=== PATIENT | male | born 1985 | race Caucasian/White ===

== ENCOUNTER 2017-04-02 19:21 | Emergency (ER) | payer SELFPAY ==
--- NOTE | 2017-04-02 20:09 | ER Document Report ---
ED Medical Screen (RME) - General Chief Complaint: Nausea/Vomiting Stated Complaint: POSSIBLE HERNIA, VOMITING BLOOD Time Seen by Provider: 04/02/17 20:08 Notes: Patient presents with abdominal pain distention and vomiting. He states he mainly was prompted the visit tonight because he had excessive vomiting for the last 3 days with blood in it. He is also had tarry watery stools for approximate 1 month. He also had abdominal pain for several months. He has abdominal distention and bloating for 1-2 months. He states up until several months ago he was a very heavy drinker and drank 1/2 gallon of hard liquor plus a case of beer every day for 10 years. He states he only drinks 1 beer a night now. TRAVEL OUTSIDE OF THE [place] IN LAST 30 DAYS: No - Related Data Allergies/Adverse Reactions: No Known Allergies Allergy (Unverified 04/02/17 19:59) Past Medical History Renal/ Medical History: Denies: Hx Peritoneal Dialysis Physical Exam - Vital signs Vitals: Temp Pulse Resp BP Pulse Ox 98.3 F 94 16 140/88 H 99 04/02/17 19:53 04/02/17 19:53 04/02/17 19:53 04/02/17 19:53 04/02/17 19:53 Course - Vital Signs Vital signs: Temp Pulse Resp BP Pulse Ox 98.3 F 94 16 140/88 H 99 04/02/17 19:53 04/02/17 19:53 04/02/17 19:53 04/02/17 19:53 04/02/17 19:53
[2017-04-02 20:38] LABS: APPEARANCE,URINE SLIGHTLY-CLOUDY; BILIRUBIN,URINE MODERATE (NEGATIVE); GLUCOSE, URINE NEGATIVE (NEGATIVE); KETONES,URINE NEGATIVE (NEGATIVE); LEUKOCYTE ESTERASE,URINE NEGATIVE (NEGATIVE); NITRITE,URINE POSITIVE (NEGATIVE); PROTEIN,URINE >=500 mg/dL (NEGATIVE)
[2017-04-02 20:51] LABS: ALANINE AMINOTRANSFERASE 33 U/L (21-72); ALBUMIN 3.9 g/dL (3.5-5.0); ALCOHOL 12 mg/dL (NONE DETECTED); ALKALINE PHOSPHATASE 122 U/L (38-126); ANION GAP 14 (5-19); ASPARTATE AMINO TRANSFERASE 224 U/L (17-59); BILIRUBIN,DIRECT 1.7 mg/dL (0.0-0.4); BILIRUBIN,TOTAL 4.8 mg/dL (0.2-1.3); BLOOD UREA NITROGEN 4 mg/dL (7-20); CALCIUM 8.9 mg/dL (8.4-10.2); CARBON DIOXIDE 29 mmol/L (22-30); CHLORIDE 99 mmol/L (98-107); CREATININE RESULT 0.58 mg/dL (0.52-1.25); GLUCOSE 107 mg/dL (75-110); POTASSIUM 3.5 mmol/L (3.6-5.0); SODIUM 141.5 mmol/L (137-145); TOTAL PROTEIN 8.4 g/dL (6.3-8.2)
--- NOTE | 2017-04-02 22:18 | ER Document Report ---
ED General - General Chief Complaint: Nausea/Vomiting Stated Complaint: POSSIBLE HERNIA, VOMITING BLOOD Time Seen by Provider: 04/02/17 20:08 Mode of Arrival: Ambulatory Information source: Patient Notes: 31-year-old male presents with complaints of abdominal distention of for 5 month duration. Patient was told that he has ascites was told the fluid could go down on its own. Patient notes that the swelling has not gone down denies any shortness breath difficulty breathing. Denies any fevers or chills. Patient notes he was in extensive alcoholic but now only drinks 1 beer a night TRAVEL OUTSIDE OF THE [place] IN LAST 30 DAYS: No - HPI Onset: Other - 4 month duration Onset/Duration: Persistent, Worse Quality of pain: Achy Severity: Mild Pain Level: 1 Associated symptoms: Other Exacerbated by: Denies Relieved by: Denies Similar symptoms previously: Yes Recently seen / treated by doctor: Yes - Related Data Allergies/Adverse Reactions: No Known Allergies Allergy (Unverified 04/02/17 19:59) Past Medical History - Social History Smoking Status: Never Smoker Cigarette use (# per day): No Chew tobacco use (# tins/day): No Smoking Education Provided: No Frequency of alcohol use: Drinks daily one beer used to be heavy alcoholic Drug Abuse: None Family History: Reviewed & Not Pertinent Renal/ Medical History: Denies: Hx Peritoneal Dialysis Surgical Hx: Negative Review of Systems - Review of Systems Notes: REVIEW OF SYSTEMS: CONSTITUTIONAL : Denies fever, chills, or sweats. Denies recent illness. EENT: Denies eye, ear, throat, or mouth pain or symptoms. Denies nasal or sinus congestion or discharge. Denies throat, tongue, or mouth swelling or difficulty swallowing. CARDIOVASCULAR: Denies chest pain. Denies palpitations or racing or irregular heart beat. Denies ankle edema. RESPIRATORY: Denies cough, cold, or chest congestion. Denies shortness of breath, difficulty breathing, or wheezing. GASTROINTESTINAL: Admits to abdominal pain mild distention protrusion of the umbilicus GENITOURINARY: Denies difficulty urinating, painful urination, burning, frequency, blood in urine, or discharge. MUSCULOSKELETAL: Denies back or neck pain or stiffness. Denies joint pain or swelling. SKIN: Denies rash, lesions or sores. HEMATOLOGIC : Denies easy bruising or bleeding. LYMPHATIC: Denies swollen, enlarged glands. NEUROLOGICAL: Denies confusion or altered mental status. Denies passing out or loss of consciousness. Denies dizziness or lightheadedness. Denies headache. Denies weakness or paralysis or loss of use of either side. Denies problems with gait or speech. Denies sensory loss, numbness, or tingling. Denies seizures. PSYCHIATRIC: Denies anxiety or stress. Denies depression, suicidal ideation, or homicidal ideation. ALL OTHER SYSTEMS REVIEWED AND NEGATIVE. Dictation was performed using [employer] voice recognition software PHYSICAL EXAMINATION: GENERAL: Well-appearing, well-nourished and in no acute distress. HEAD: Atraumatic, normocephalic. EYES: Pupils equal round and reactive to light, extraocular movements intact, sclera anicteric, conjunctiva are normal. ENT: Nares patent, oropharynx clear without exudates. Moist mucous membranes. NECK: Normal range of motion, supple without lymphadenopathy LUNGS: Breath sounds clear to auscultation bilaterally and equal. No wheezes rales or rhonchi. HEART: Regular rate and rhythm without murmurs ABDOMEN: Distended abdomen fluid level noted nontender on palpation no hernia noted but there is protrusion of the umbilicus Musculoskeletal: Normal range of motion, no pitting or edema. No cyanosis. NEUROLOGICAL: Cranial nerves grossly intact. Normal speech, normal gait. Normal sensory, motor exams PSYCH: Normal mood, normal affect. SKIN: Warm, Dry, normal turgor, no rashes or lesions noted. 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 Also, there is no evidence or peritonitis, sepsis, or toxicity. I have reevaluated this patient multiple times and no significant life threatening changes are noted. The patient and I have discussed the diagnosis and risks, and we agree with discharging home with close follow-up with the understanding that symptoms and presentations can change. We also discussed returning to the Emergency Department immediately if new or worsening symptoms occur. We have discussed the symptoms which are most concerning (e.g., bloody stool, fever, changing or worsening pain, intractable vomiting - standard verbal up date) that necessitate immediate return. - Vital Signs Vital signs: Temp Pulse Resp BP Pulse Ox 98.3 F 94 16 128/90 H 96 04/02/17 19:53 04/02/17 19:53 04/02/17 19:53 04/02/17 23:01 04/02/17 23:01 - Laboratory Result Diagrams: 04/02/17 22:33 04/02/17 20:10 Laboratory results interpreted by me: 04/02/17 04/02/17 04/02/17 20:10 20:10 22:33 RBC 3.89 L Hgb 12.3 L Hct 36.8 L RDW 14.4 H PT Potassium 3.5 L BUN 4 L Total Bilirubin 4.8 H Direct Bilirubin 1.7 H AST 224 H Total Protein 8.4 H Urine Protein >=500 H Urine Blood MODERATE H Urine Nitrite POSITIVE H Urine Bilirubin MODERATE H Urine Urobilinogen 4.0 H 04/02/17 22:33 RBC Hgb Hct RDW PT 21.1 H Potassium BUN Total Bilirubin Direct Bilirubin AST Total Protein Urine Protein Urine Blood Urine Nitrite Urine Bilirubin Urine Urobilinogen - Diagnostic Test Radiology reviewed: Image reviewed, Reports reviewed - report given to patient Discharge - Discharge Clinical Impression: Ascites due to alcoholic cirrhosis, Abdominal distension Condition: Stable Disposition: HOME, SELF-CARE Instructions: Liver Function Abnormality ([facility]) Forms: Follow-Up Radiology Testing Referrals: EDGARD BRIGHT MD [ACTIVE STAFF] - Follow up tomorrow
[2017-04-02] MEDS ORDERED: ONDANSETRON HCL INJ/PF 4 MG/2 ML SDV IV ONE (22:19)
[2017-04-02 22:47] LABS: ABSOLUTE LYMPHOCYTES (AUTO) 0.8 10^3/uL (0.5-4.7); ABSOLUTE MONOCYTES (AUTO) 0.4 10^3/uL (0.1-1.4); ABSOLUTE NEUT (AUTO) 3.6 10^3/uL (1.7-8.2); BASOPHILS % (AUTO) 0.7 % (0-2); EOSINOPHILS % (AUTO) 0.9 % (0-6); HEMATOCRIT 36.8 % (37.9-51.0); HEMOGLOBIN 12.3 g/dL (13.5-17.0); HGB HCT DIFFERENCE 0.1; LYMPHOCYTES % (AUTO) 16.1 % (13-45); MEAN CORPUSCULAR HEMOGLOBIN 31.7 pg (27.0-33.4); MEAN CORPUSCULAR HGB CONC 33.5 g/dL (32.0-36.0); MEAN CORPUSCULAR VOLUME 94 fl (80-97); RED BLOOD COUNT 3.89 10^6/uL (4.35-5.55); RED CELL DISTRIBUTION WIDTH 14.4 % (11.5-14.0); SEGMENTED NEUTROPHILS % (AUTO) 73.3 % (42-78)
[2017-04-02 22:59] LABS: PROTHROMBIN TIME 21.1 SEC (11.4-15.4)
--- NOTE | 2017-04-02 23:30 | RADIOLOGY REPORT (SQ) ---
"EXAM DESCRIPTION: CT ABD/PELVIS WITH IV ORAL COMPLETED DATE/TIME: 04/02/2017 10:33 pm REASON FOR STUDY: abd pain/vomiting/bloody diarrhea COMPARISON: July 2011 TECHNIQUE: CT scan of the abdomen and pelvis performed with intravenous and oral contrast using jessica terri scanning technique with dynamic intravenous contrast injection. Images reviewed with lung, soft t issue, and bone windows. Reconstructed coronal and sagittal MPR images reviewed. Delayed images for e valuation of the urinary system also acquired. All images stored on PACS. All CT scanners at this facility use dose modulation, iterative reconstruction, and/or weight based d osing when appropriate to reduce radiation dose to as low as reasonably achievable (ALARA). [facility]: Dose Right [facility]: CareDose [facility]: Dose Right [facility]: Teradose 4D [facility]: ideaTree - innovate | mentor | invest CONTRAST TYPE AND DOSE: contrast/concentration: Isovue 370.00 mg/ml; Total Contrast Delivered: 100.0 ml; Total Saline Delivered: 72.0 ml RENAL FUNCTION: None required. The patient is less than 50 years old. RADIATION DOSE: Up-to-date CT equipment and radiation dose reduction techniques were employed. CTDIv ol: 11.6 mGy. DLP: 1476 mGy-cm. . LIMITATIONS: None. FINDINGS: LOWER CHEST: No significant findings. No nodules or infiltrates. LIVER: There is diffuse heterogeneous density in the liver which may represent areas of fatty infiltr ation and fatty sparing. The possibility of an infiltrative process or diffuse metastatic disease ca nnot be excluded. SPLEEN: The spleen is enlarged without focal splenic abnormalities being identified. PANCREAS: No masses. No significant calcifications. No adjacent inflammation or peripancreatic fluid collections. Pancreatic duct not dilated. GALLBLADDER: No identified stones by CT criteria. No inflammatory changes to suggest cholecystitis. ADRENAL GLANDS: No significant masses or asymmetry. RIGHT KIDNEY AND URETER: No solid masses. No significant calcifications. No hydronephrosis or hyd roureter. LEFT KIDNEY AND URETER: No solid masses. No significant calcifications. No hydronephrosis or hydr oureter. AORTA AND VESSELS: No aneurysm. No dissection. Renal arteries, SMA, celiac without stenosis. RETROPERITONEUM: No retroperitoneal adenopathy, hemorrhage or masses. BOWEL AND PERITONEAL CAVITY: Extensive intra-abdominal and pelvic ascitic fluid is identified. No ob struction. No visualized masses. No inflammatory changes or thickening of bowel wall. APPENDIX: Not identified PELVIS: No significant masses. Normal bladder. Large amount of pelvic ascitic fluid is identified. ABDOMINAL WALL: No masses. No hernias. BONES: No significant or acute findings. OTHER: No other significant finding. IMPRESSION: There is diffuse heterogeneous density in the liver is noted above which may represent a reas of fatty infiltration and fatty sparing. The possibility of an infiltrative process or diffuse metastatic disease cannot be excluded. There is splenomegaly without focal splenic abnormalities andrei ng identified. A large amount of intra-abdominal and pelvic ascitic fluid is identified. Other find ings as noted above TECHNICAL DOCUMENTATION: JOB ID: [id number] Quality ID # 436: Final reports with documentation of one or more dose reduction techniques (e.g., Au tomated exposure control, adjustment of the mA and/or kV according to patient size, use of iterative reconstruction technique) 2010 [employer]- All Rights Reserved"
[2017-04-02] MEDS ORDERED: CIPROFLOXACIN HCL 500 MG TABLET PO ONE (23:43)
[2017-04-03 00:21] VITALS: BP 129/89
== END 2017-04-03 00:19 | disposition home or self-care (01) ==
LOC: ER 19:21
DX: K70.31 Alcoholic cirrhosis of liver with ascites (principal); R14.0 Abdominal distension (gaseous); N30.00 Acute cystitis without hematuria; R11.2 Nausea with vomiting, unspecified
CPT/HCPCS: 99284; 96374; 36415; 87086; 80307; 85025; 85610; 80053; 81001; 74177; J2405

== ENCOUNTER 2017-04-04 07:28 | Day surgery (SDC) | payer SELFPAY ==
[2017-04-04 09:55] VITALS: BP 122/82
--- NOTE | 2017-04-04 11:59 | RADIOLOGY REPORT (SQ) ---
EXAM DESCRIPTION: U/S ABDOMEN LIMITED W/O DOP COMPLETED DATE/TIME: 04/04/2017 10:17 am REASON FOR STUDY: ASCITES K70.31 ALCOHOLIC CIRRHOSIS OF LIVER WITH ASCITES COMPARISON: None. TECHNIQUE: Dynamic and static grayscale images acquired of the localized site of clinical concern an d recorded on PACS. Additional selected color Doppler and spectral images recorded. SITE OF CONCERN: Abdomen. LIMITATIONS: None. FINDINGS: Small amount of ascites noted in the lower quadrants. No large pockets. IMPRESSION: Small amount of ascites. TECHNICAL DOCUMENTATION: JOB ID: [id number] [employer]- All Rights Reserved
== END 2017-04-04 10:10 | disposition home or self-care (01) ==
LOC: RAD 07:28
PROVIDERS: ATTEND Emergency Medicine
DX: K70.31 Alcoholic cirrhosis of liver with ascites (principal)
CPT/HCPCS: 76705

== ENCOUNTER 2017-06-28 08:11 | Day surgery (SDC) | payer MEDICAID ==
[~2017-06-28 08:11] MED LIST: DIPHENHYDRAMINE HCL 50 MG/ML VIAL ONE; EPINEPHRINE INJ 1 MG/10 ML DISP.SYRIN ONE; FLUMAZENIL INJ 0.5 MG/5 ML VIAL ONE; GLUCAGON,HUMAN RECOMB 1 MG INJ ONE; MIDAZOLAM 2 MG/2 ML INJ ONE; NALOXONE HCL INJ/PF 0.4 MG/1 ML SDV ONE; ONDANSETRON HCL INJ/PF 4 MG/2 ML SDV ONE
[2017-06-28] MEDS: MIDAZOLAM 2 MG/2 ML INJ ONE ×2 (08:28→08:32)
[2017-06-28] MEDS: FENTANYL CITRATE INJ/PF 100 MCG/2 ML AMPUL ONE ×4 (08:30→08:40)
--- NOTE | 2017-06-28 08:49 | Operative Report ---
Operative Report DATE OF SURGERY: 06/28/17 Operative Report: The risks benefits and alternatives of the procedure explained to the patient in detail and informed consent is obtained.A GIF Olympus video scope was inserted into the patient's mouth and hypopharynx, the esophagus is identified intubated and insufflated, the scope was then advanced through the esophagus stomach and duodenum ,retroflexion maneuver is done, the esophagus stomach and first and second portions of the duodenum examined PREOPERATIVE DIAGNOSIS: Hematemesis in the past POSTOPERATIVE DIAGNOSIS: Grade 1 esophageal varices. Alcoholic gastritis status post biopsy OPERATION: EGD with biopsy SURGEON: LARRY MOISE ANESTHESIA: Moderate Sedation - 6 mg of Versed, 150 mcg of fentanyl. Conscious sedation monitoring time 30 minutes. TISSUE REMOVED OR ALTERED: Gastric mucosal specimen obtained to rule out Helicobacter pylori. COMPLICATIONS: None. ESTIMATED BLOOD LOSS: None. INTRAOPERATIVE FINDINGS: As noted above. No active bleeding noted. PROCEDURE: Patient tolerated procedure well. No immediate postprocedure complications are noted. Patient discharged in good condition. Discharge date 06/28/2017. Discharge diet: Regular. Discharge activity: Regular. 2-3 week follow-up to discuss findings. Patient is instructed to call the office or proceed to the emergency room should there be any further problems or questions. We will await pathology to treat.
[2017-06-28 10:06] VITALS: BP 104/65
== END 2017-06-28 09:50 | disposition home or self-care (01) ==
LOC: END 08:11
PROVIDERS: ATTEND Internal Medicine Gastroenterology
PROC: 0DB68ZX Excision of Stomach, Via Natural or Artificial Opening Endoscopic, Diagnostic (ICD-10-PCS; principal; 2017-06-28 08:30)
DX: K29.20 Alcoholic gastritis without bleeding (principal); B96.81 Helicobacter pylori [H. pylori] as the cause of diseases classified elsewhere; K70.30 Alcoholic cirrhosis of liver without ascites; I85.10 Secondary esophageal varices without bleeding; F17.210 Nicotine dependence, cigarettes, uncomplicated; F10.10 Alcohol abuse, uncomplicated; B18.2 Chronic viral hepatitis C; Z79.899 Other long term (current) drug therapy; Z88.8 Allergy status to other drugs, medicaments and biological substances
CPT/HCPCS: 43239; 88342 ×2; 88305 ×2; J2250; J3010; J0171; J1200; J1610; J2310; J2405; J3490

== ENCOUNTER 2018-09-09 06:08 | Inpatient (IN) | payer MEDICAID ==
--- NOTE | 2018-09-09 06:29 | ER Document Report ---
ED General - General Chief Complaint: Probable Seizure Stated Complaint: POSSIBLE SEIZURE Time Seen by Provider: 09/09/18 06:16 Notes: 32-year-old male with hep C and alcoholic cirrhosis with history of set cytopenias including terms of the p.m. presents after a seizure when he fell out of bed. Clean for 3 days from alcohol and drank last night. Sees this morning. Hallucinating all night and altered per his . Wound to the left brow. Post to be transferred to [place]" for platelet transfusion" last week however he left AGAINST MEDICAL ADVICE. states he is compliant with lactulose. Denies worsening jaundice. TRAVEL OUTSIDE OF THE [place] IN LAST 30 DAYS: No - Related Data Allergies/Adverse Reactions: ondansetron [From Zofran (as hydrochloride)] Adverse Reaction (Verified 06/28/17 08:00) Hallucinations Past Medical History - Social History Smoking Status: Never Smoker Frequency of alcohol use: Heavy Family History: Reviewed & Not Pertinent - Past Medical History Cardiac Medical History: Denies: Hx Coronary Artery Disease, Hx Heart Attack, Hx Hypertension Pulmonary Medical History: Denies: Hx Asthma, Hx Bronchitis, Hx COPD, Hx Pneumonia Neurological Medical History: Denies: Hx Cerebrovascular Accident, Hx Seizures Renal/ Medical History: Denies: Hx Peritoneal Dialysis Musculoskeletal Medical History: Denies Hx Arthritis - Immunizations Hx Diphtheria, Pertussis, Tetanus Vaccination: No Review of Systems - Review of Systems Notes: REVIEW OF SYSTEMS GEN: Denies fever, chills, weight loss ENT: Denies sore throat, nasal discharge, ear pain EYES: Denies blurry vision, eye pain, discharge CV: Denies chest pain, palpitations, edema RESP: Denies cough, shortness of breath, wheezing GI: Denies abdominal pain, nausea, vomiting, diarrhea MSK: Denies joint pain/swelling, edema, SKIN: Jaundice easy bruising LYMPH: Denies swollen glands/lymph nodes NEURO: Mental sluggishness seizure altered mental status PSYCH: Denies depression, suicidal or homicidal ideation PHYSICAL EXAMINATION General: Chronically ill Head: Left brow hematoma and small laceration normocephalic ENT: Mouth normal, oropharynx moist, no exudates or tonsillar enlargement Eyes: Icterus Neck: No JVD, supple, no guarding CVS: Normal rate, regular rhythm, no murmurs Resp: No resp distress, equal and normal breath sounds bilaterally GI: Nondistended, soft, no tenderness to palpation, no rebound or guarding Ext: No deformities, no edema, normal range of motion in upper and lower ext Back: No CVA or midline TTP Skin: No rash, warm, jaundice, multiple ecchymosis Lymphatic: No lymphadeopathy noted Neuro: Awake, alert. Face symmetric. GCS 15. Tremulousness of the hands with asterixis but no tongue tremor. Physical Exam - Vital signs Vitals: Temp Pulse Resp BP Pulse Ox 98.2 F 83 19 107/79 94 09/09/18 06:14 09/09/18 06:14 09/09/18 06:14 09/09/18 06:14 09/09/18 06:14 Course - Re-evaluation Re-evalutation: 09/09/18 06:28 Cirrhotic 32-year-old presents with ongoing alcohol use and seizure which could be from withdrawal or from the R normality's or from hepatic encephalopathy. Currently he looks slightly encephalopathic but is not in florid alcohol withdrawal. Evidence of head trauma with history of dermal cytopenia and likely prolonged INR. Patient will get a CT scan for workup including LFTs and INR and labs. Carefully for alcohol withdrawal. 09/09/18 08:40 Labs show platelets of 40 otherwise labs are completely stable from recent labs. Chronic cirrhosis without decompensation. Ammonia is within normal limits and the patient does not appear encephalopathic to the degree requiring admission. His lacerations that require repair. Though he is chronically quite ill, I do not see a need for acute admission today, he is not an alcohol withdrawal and is stable for discharge to follow-up with GI. I have discussed with the patient there likely diagnosis, aftercare plan, follow-up plans and my usual and customary return precautions. They verbalized understanding of this. - Vital Signs Vital signs: Temp Pulse Resp BP Pulse Ox 98.2 F 83 14 117/72 94 09/09/18 06:14 09/09/18 06:14 09/09/18 07:01 09/09/18 07:01 09/09/18 07:01 - Laboratory Result Diagrams: 09/09/18 07:37 09/09/18 06:13 Laboratory results interpreted by me: 09/09/18 09/09/18 09/09/18 06:13 06:13 06:27 RBC Hgb Hct MCV RDW Plt Count Monocytes % PT 21.9 H Sodium 135.4 L Potassium 3.2 L Chloride 96 L BUN 6 L Glucose 113 H Total Bilirubin 7.3 H Direct Bilirubin 3.3 H AST 278 H Ammonia 39.3 H 09/09/18 07:37 RBC 3.28 L Hgb 11.0 L Hct 32.0 L MCV 98 H RDW 14.6 H Plt Count 40 L Monocytes % 14.0 H PT Sodium Potassium Chloride BUN Glucose Total Bilirubin Direct Bilirubin AST Ammonia - Diagnostic Test Radiology reviewed: Image reviewed, Reports reviewed Discharge - Discharge Clinical Impression: Alcohol dependence Cirrhosis Qualifiers: Hepatic cirrhosis type: unspecified hepatic cirrhosis Ascites presence: without ascites Qualified Code(s): K74.60 - Unspecified cirrhosis of liver Disposition: HOME, SELF-CARE Instructions: Chronic Alcoholism ([facility]), Cirrhosis ([facility]) Additional Instructions: Do not find evidence of head trauma internally today, and mental status was s table. Hallucinations at night could be due to delirium or hepatic encephalopathy however the ammonia level is stable today. Please continue lactulose and call Dr. Joshua for follow-up. Please avoid alcohol at all costs. Referrals: PRISCILLA BAUTISTA MD [Primary Care Provider] - Follow up as needed
[2018-09-09 06:37] LABS: INTERNATIONAL RATION (INR) 1.82; PROTHROMBIN TIME 21.9 SEC (11.4-15.4)
[2018-09-09 06:39] LABS: ALANINE AMINOTRANSFERASE 28 U/L (21-72); ALBUMIN 3.6 g/dL (3.5-5.0); ALKALINE PHOSPHATASE 105 U/L (38-126); ANION GAP 13 (5-19); ASPARTATE AMINO TRANSFERASE 278 U/L (17-59); BILIRUBIN,DIRECT 3.3 mg/dL (0.0-0.4); BILIRUBIN,TOTAL 7.3 mg/dL (0.2-1.3); BLOOD UREA NITROGEN 6 mg/dL (7-20); CALCIUM 8.8 mg/dL (8.4-10.2); CARBON DIOXIDE 26 mmol/L (22-30); CHLORIDE 96 mmol/L (98-107); GLUCOSE 113 mg/dL (75-110); POTASSIUM 3.2 mmol/L (3.6-5.0); SODIUM 135.4 mmol/L (137-145); TOTAL PROTEIN 7.8 g/dL (6.3-8.2)
--- NOTE | 2018-09-09 07:16 | RADIOLOGY REPORT (SQ) ---
EXAM DESCRIPTION: CT HEAD WITHOUT IV CONTRAST COMPLETED DATE/TME: 09/09/2018 06:25 CLINICAL HISTORY: 32 years, Male, Number cytopenia and head trauma COMPARISON: 07/27/2011 TECHNIQUE: Axial CT images of the brain were obtained without contrast. Sagittal and coronal reformats were performed. DLP 1070 Images stored on PACS. All CT scanners at this facility use dose modulation, iterative reconstruction, and/or weight based dosing when appropriate to reduce radiation dose to as low as reasonably achievable (ALARA). [facility]: Dose Right [facility]: CareDose [facility]: Dose Right [facility]: Teradose 4D [facility]: [employer] LIMITATIONS: None. FINDINGS: There is no acute infarct, hemorrhage, mass, edema, hydrocephalus, or extra-axial fluid collection. The paranasal sinuses and mastoid air cells are clear. There is no acute fracture IMPRESSION: No acute intracranial abnormality. TECHNICAL DOCUMENTATION: Quality ID # 436: Final reports with documentation of one or more dose reduction techniques (e.g., Automated exposure control, adjustment of the mA and/or kV according to patient size, use of iterative reconstruction technique) copyright 2011 [employer]- All Rights Reserved
[2018-09-09 07:53] LABS: ABSOLUTE EOSINOPHILS # (AUTO) 0.1 10^3/uL (0.0-0.6); ABSOLUTE LYMPHOCYTES (AUTO) 0.7 10^3/uL (0.5-4.7); ABSOLUTE MONOCYTES (AUTO) 0.6 10^3/uL (0.1-1.4); ABSOLUTE NEUT (AUTO) 3.2 10^3/uL (1.7-8.2); BASOPHILS % (AUTO) 0.6 % (0-2); EOSINOPHILS % (AUTO) 1.7 % (0-6); MEAN CORPUSCULAR HEMOGLOBIN 33.4 pg (27.0-33.4); MEAN CORPUSCULAR HGB CONC 34.2 g/dL (32.0-36.0); MEAN CORPUSCULAR VOLUME 98 fl (80-97); RED BLOOD COUNT 3.28 10^6/uL (4.35-5.55); RED CELL DISTRIBUTION WIDTH 14.6 % (11.5-14.0); SEGMENTED NEUTROPHILS % (AUTO) 68.7 % (42-78); TOTAL CELLS COUNTED % (AUTO) 100 %; WHITE BLOOD COUNT 4.6 10^3/uL (4.0-10.5)
[2018-09-09 08:25] LABS: PLATELET COUNT 40 10^3/uL (150-450)
[2018-09-09] MEDS ORDERED: LORAZEPAM INJ 2 MG/1 ML VIAL ONE ×2 (08:49→10:56)
[2018-09-09] MEDS ORDERED: LORAZEPAM INJ 2 MG/1 ML VIAL IV ONE ×3 (09:05→19:30)
[2018-09-09] MEDS ORDERED: SPIRONOLACTONE PO SCH (10:00)
[2018-09-09] MEDS ORDERED: ACETAMINOPHEN 325 MG TABLET PO PRN (10:09)
[2018-09-09] MEDS ORDERED: PROMETHAZINE HCL INJ 25 MG/1 ML VIAL IV PRN (10:09)
[2018-09-09] MEDS ORDERED: ACETAMINOPHEN 650 MG SUPP.RECT PR PRN (10:09)
[2018-09-09] MEDS ORDERED: IPRATROPIUM/ALBUTEROL 0.5-2.5 MG/3 ML AMPUL NEB PRN (10:09)
[2018-09-09] MEDS: FUROSEMIDE 40 MG TABLET PO SCH (12:57)
[2018-09-09] MEDS: LACTULOSE SYRUP 20 GM/30 ML UDCUP PO SCH ×4 (12:57→22:34)
[2018-09-09] MEDS: SPIRONOLACTONE 25 MG TABLET PO SCH (12:57)
[2018-09-09] MEDS: PANTOPRAZOLE SODIUM 40 MG VIAL IV SCH ×2 (13:47→22:34)
[2018-09-09] MEDS: LORAZEPAM INJ 2 MG/1 ML VIAL IV PRN ×3 (13:47→22:33)
[2018-09-09] MEDS: MAGNESIUM SULFATE/D5W 1 GM/100 ML RTUPB IV SCH ×2 (16:50→17:56)
[2018-09-09] MEDS: NORMAL SALINE 1000 ML 1,000 ML with POTASSIUM CHLORIDE 20 MEQ, MAGNESIUM SULFATE 8 MEQ,... IV SCH ×5 (17:56)
[2018-09-09] MEDS ORDERED: NICOTINE 21 MG/24 HR PATCH.TD24 TD PRN (18:45)
--- NOTE | 2018-09-09 18:56 | PSYCHOLOGICAL NOTE ---
Psych Note - Psych Note Date seen by psych provider: 09/09/18 Time seen by psych provider: 12:30 Psych Note: Patient is a 32 yo male presenting to the ED via EMS for concerns of seizure. Patient is unable to participate in an evaluation at this time due to AMS with DT's, grand mal type seizures in the ED, AV/H, and is combative. Per , pt is a heavy drinker and fell out of bed this morning having what appeared to be a seizure. Chart review shows patient has been treated at [facility] since 2017 for cirrhosis resulting from alcohol dependence. Patient is known to [facility] and was discharged from [facility] on 09/01/18 with linkage to detox and presented again to [facility] on 09/05/18 but left AMA. Diagnosis 303.90 (F10.20) Alcohol Use Disorder, Severe, per history Impression/Plan: Recommendation is to maintain IVC for risk of harm to self due to AMS, AV/H resulting from what appears to be alcohol withdrawal as patient's toxicology was negative. Plan to evaluate at a later time as patient was unable to be evaluated today due to his AMS. Patient is a 32 yo male with hx of alcohol dependence and cirrhosis of the liver who presented today with seizures and AV/H. Patient is to be admitted. Consulted Dr. Lundberg in the care and treatment of this patient and ED physician who is in agreement with disposition and recommendation. No medication recommendations at this time.
--- NOTE | 2018-09-09 19:05 | PDOC H&P ---
History of Present Illness Admission Date/PCP: 09/09/18 09:04 PRISCILLA BAUTISTA MD Patient complains of: EtOH withdrawal History of Present Illness: DOROTHEA DOTY is a 32 year old male with a past medical history significant for alcoholic cirrhosis and alcohol dependence with continuous use who presents to the emergency department today via EMS for possible EtOH withdrawal seizure at home witnessed by his . Upon arrival to the emergency department he did have a witnessed seizure by the emergency department provider. Patient's reports that he was recently admitted at [facility] for alcohol withdrawal and cirrhosis; was discharged the following day. He was readmitted 3 days later but then left AMA when informed that he required platelet transfusions. She states that at that time his platelets were 26 (improved to 40 today) with a serum alcohol level greater than 400. She states that since returning to home, the patient has abstained from alcohol until yesterday when he drank two beers to moderate withdrawal symptoms. Patient's reports that he has been hallucinating at home, moving furniture, and falling frequently. She is aware of his liver cirrhosis diagnosis, however, I am not certain that she understands the gravity of his situation. She does recognize that he will not be a candidate for any treatments while he is continuing to drink alcohol. Evaluation in the emergency department revealed normal vital signs, anemia (hemoglobin 11.0), INR 1.82, mild hyponatremia, hypokalemia, hypo-magnesium, elevated total bili 7.3, AST 278, and ammonia of 39.3. Head CT was negative. He is referred to the hospitalist services for admission and management of alcohol withdrawal with delirium/seizures and alcoholic cirrhosis. Past Medical History Cardiac Medical History: Denies: Coronary Artery Disease, Myocardial Infarction, Hypertension Pulmonary Medical History: Denies: Chronic Obstructive Pulmonary Disease (COPD) Neurological Medical History: Reports: Seizures - EtOH withdrawal related Endocrine Medical History: Reports: None Renal/ Medical History: Reports: None Malignancy Medical History: Reports: None GI Medical History: Reports: Cirrhosis Musculoskeltal Medical History: Denies: Arthritis Skin Medical History: Reports: None Psychiatric Medical History: Reports: Alcohol Dependency Denies: Depression Hematology: Reports: Anemia Infectious Medical History: Reports: None Past Surgical History Past Surgical History: Reports: None Social History Information Source: Relative Lives with: Family Smoking Status: Current Every Day Smoker Cigarettes Packs Per Day: 1 Number of Years Smokin Frequency of Alcohol Use: Heavy Hx Recreational Drug Use: No Drugs: None Hx Prescription Drug Abuse: No - Advance Directive Resuscitation Status: Full Code Family History Family History: Reviewed & Not Pertinent Parental Family History Reviewed: Yes Children Family History Reviewed: Yes Sibling(s) Family History Reviewed.: Yes Medication/Allergy Allergies/Adverse Reactions: ondansetron [From Zofran (as hydrochloride)] Adverse Reaction (Verified 06/28/17 08:00) Hallucinations Review of Systems Constitutional: ABSENT: chills, fever(s), headache(s), weight gain, weight loss Eyes: ABSENT: visual disturbances Ears: ABSENT: hearing changes Cardiovascular: ABSENT: chest pain, dyspnea on exertion, edema, orthropnea, palpitations Respiratory: ABSENT: cough, hemoptysis Gastrointestinal: PRESENT: diarrhea, nausea, vomiting. ABSENT: abdominal pain, constipation, hematemesis, hematochezia Genitourinary: ABSENT: dysuria, hematuria Musculoskeletal: ABSENT: joint swelling Integumentary: ABSENT: rash, wounds Neurological: PRESENT: as per HPI, convulsions, frequent falls, tremor(s), weakness. ABSENT: abnormal gait, abnormal speech, confusion, dizziness, focal weakness, syncope Psychiatric: ABSENT: anxiety, depression, homidical ideation, suicidal ideation Endocrine: ABSENT: cold intolerance, heat intolerance, polydipsia, polyuria Hematologic/Lymphatic: PRESENT: easy bruising. ABSENT: easy bleeding Physical Exam Vital Signs: Temp Pulse Resp BP Pulse Ox 98.6 F 108 H 20 125/86 H 94 09/09/18 15:40 09/09/18 15:40 09/09/18 15:40 09/09/18 15:40 09/09/18 15:40 Intake & Output 09/08/18 09/09/18 09/10/18 06:59 06:59 06:59 Intake Total 336 Output Total 500 Balance -164 Weight 99.9 kg General appearance: PRESENT: mild distress, well-developed, well-nourished Head exam: PRESENT: normocephalic, other - Lt periorbital ecchymosis Eye exam: PRESENT: conjunctiva pink, EOMI, PERRLA, scleral icterus Ear exam: PRESENT: normal external ear exam Mouth exam: PRESENT: moist, tongue midline Neck exam: ABSENT: carotid bruit, JVD, lymphadenopathy, thyromegaly Respiratory exam: PRESENT: clear to auscultation gi, symmetrical, unlabored. ABSENT: rales, rhonchi, wheezes Cardiovascular exam: PRESENT: RRR, +S1, +S2. ABSENT: diastolic murmur, rubs, systolic murmur Pulses: PRESENT: normal dorsalis pedis pul Vascular exam: PRESENT: normal capillary refill GI/Abdominal exam: PRESENT: normal bowel sounds, soft. ABSENT: distended, guarding, mass, organolmegaly, rebound, tenderness Rectal exam: PRESENT: deferred Extremities exam: PRESENT: full ROM. ABSENT: calf tenderness, clubbing, pedal edema Neurological exam: PRESENT: alert, awake, oriented to person, CN II-XII grossly intact, other - Delirium tremens; impulsive. ABSENT: oriented to place, oriented to time, oriented to situation, motor sensory deficit Psychiatric exam: PRESENT: agitated. ABSENT: homicidal ideation, suicidal ideation Focused psych exam: PRESENT: restlessness Skin exam: PRESENT: dry, intact, jaundice, warm, other - Large deep ecchymosis to bilateral upper extremities, left chest wall. ABSENT: cyanosis, rash Results Laboratory Results: 09/09/18 07:37 09/09/18 06:13 09/09/18 09/09/18 09/09/18 06:13 06:13 06:27 WBC Cancelled RBC Cancelled Hgb Cancelled Hct Cancelled MCV Cancelled MCH Cancelled MCHC Cancelled RDW Cancelled Plt Count Cancelled Seg Neutrophils % Cancelled Lymphocytes % Cancelled Monocytes % Cancelled Eosinophils % Cancelled Basophils % Cancelled Absolute Neutrophils Cancelled Absolute Lymphocytes Cancelled Absolute Monocytes Cancelled Absolute Eosinophils Cancelled Absolute Basophils Cancelled Sodium 135.4 L Potassium 3.2 L Chloride 96 L Carbon Dioxide 26 Anion Gap 13 BUN 6 L Creatinine 0.57 Est GFR ( Amer) > 60 Est GFR (Non-Af Amer) > 60 Glucose 113 H Calcium 8.8 Magnesium Total Bilirubin 7.3 H AST 278 H ALT 28 Alkaline Phosphatase 105 Ammonia 39.3 H Total Protein 7.8 Albumin 3.6 Blood Type Antibody Screen 09/09/18 09/09/18 09/09/18 07:37 11:34 11:34 WBC 4.6 RBC 3.28 L Hgb 11.0 L Hct 32.0 L MCV 98 H MCH 33.4 MCHC 34.2 RDW 14.6 H Plt Count 40 L Seg Neutrophils % 68.7 Lymphocytes % 15.0 Monocytes % 14.0 H Eosinophils % 1.7 Basophils % 0.6 Absolute Neutrophils 3.2 Absolute Lymphocytes 0.7 Absolute Monocytes 0.6 Absolute Eosinophils 0.1 Absolute Basophils 0.0 Sodium Potassium Chloride Carbon Dioxide Anion Gap BUN Creatinine Est GFR ( Amer) Est GFR (Non-Af Amer) Glucose Calcium Magnesium 1.3 L Total Bilirubin AST ALT Alkaline Phosphatase Ammonia Total Protein Albumin Blood Type A POSITIVE Antibody Screen NEGATIVE Impressions: Head CT 09/09/18 06:25 IMPRESSION: No acute intracranial abnormality. TECHNICAL DOCUMENTATION: Quality ID # [id number]: Final reports with documentation of one or more dose reduction techniques (e.g., Automated exposure control, adjustment of the mA and/or kV according to patient size, use of iterative reconstruction technique) copyright 2011 [employer]- All Rights Reserved Assessment & Plan - Diagnosis (1) Alcohol withdrawal seizure Qualifiers: Complication of substance-induced condition: with delirium Qualified Code(s): F10.231 - Alcohol dependence with withdrawal delirium Is this a current diagnosis for this admission?: Yes Plan: Patient's reports that he drank two beers two days ago; otherwise last alcohol intake 09/05/18. She reports patient has had visual/auditory hallucinations, has been agitated, moving furniture, and falling at home. Questionable seizure activity prior to arrival and witnessed seizure in the ED this morning. Serum EtOH <10 on arrival. The patient is admitted to [facility] on continuous cardiac telemetry. He is provided maintenance IVF and will receive a banana bag nightly. IV Ativan 2mg every 2 hours for anxiety/agitation/withdrawal symptoms. Soft restraints; 1:1 sitter for safety (patient is pulling at IV lines, telemetry, postictal disorientation/combativeness). Fall, seizure, aspiration precautions. Discussed with Mental Health; Dr. Lundberg agreeable to IVC as the patient recently left AMA from another facility. The patient's is agreeable and appreciative of plan to place under IVC status. Discharge planning is consulted. (2) Thrombocytopenia Is this a current diagnosis for this admission?: Yes Plan: Secondary to Alcoholic cirrhosis. Per patient's ; PLT were 26 at an outside facility less than 1 week ago. Patient left prior to receiving planned PLT transfusion. No active bleeding at present; will monitor closely and transfuse as necessary. Patient is Typed and Screened in anticipation of possible need. Fall, seizure, aspiration, and bleeding precautions. (3) Cirrhosis Qualifiers: Hepatic cirrhosis type: alcoholic cirrhosis Ascites presence: without ascites Qualified Code(s): K70.30 - Alcoholic cirrhosis of liver without ascites Is this a current diagnosis for this admission?: Yes Plan: MELD score 22; 19.6% 3-month mortality risk. Supportive measures: IVF while not tolerating p.o. Continue Lasix/spironolactone. Bleeding precautions; transfuse as necessary. Consider steroid therapy. Resume Lactulose for hyperammonemia. Palliative care consultation at 's request; understands limited availability of interventions considering patient's continued EtOH abuse. Mental Health evaluation for underlying mental health disorders contributing to EtOH abuse. Daily chemistry. (4) Alcohol dependence Qualifiers: Substance use status: in withdrawal Complication of substance-induced condition: with delirium Qualified Code(s): F10.231 - Alcohol dependence with withdrawal delirium Is this a current diagnosis for this admission?: Yes Plan: Plan as above. (5) Hyponatremia Is this a current diagnosis for this admission?: Yes Plan: IVF. Daily chemistry. (6) Hypokalemia Is this a current diagnosis for this admission?: Yes Plan: Secondary to EtOH abuse. IV banana bag nightly. Daily chemistry. (7) Hypomagnesemia Is this a current diagnosis for this admission?: Yes Plan: Secondary to EtOH abuse. IV Magnesium 2 gm today. Will monitor and continue to replace as necessary. - Time Time Spent: Greater than 70 Minutes Medications reviewed and adjusted accordingly: Yes
[2018-09-09 23:44] LABS: URINE AMPHETAMINES SCREEN NEGATIVE; URINE BARBITURATES SCREEN NEGATIVE; URINE BENZODIAZEPINES SCREEN NEGATIVE; URINE COCAINE SCREEN NEGATIVE; URINE MARIJUANA (THC) SCREEN NEGATIVE; URINE METHADONE SCREEN NEGATIVE; URINE PHENCYCLIDINE SCREEN NEGATIVE
[2018-09-10] MEDS: LORAZEPAM INJ 2 MG/1 ML VIAL IV PRN ×7 (00:59→22:20)
[2018-09-10] MEDS: NORMAL SALINE 1000 ML 1,000 ML IV PRN (03:34)
[2018-09-10 07:16] LABS: INTERNATIONAL RATION (INR) 1.86; PROTHROMBIN TIME 22.3 SEC (11.4-15.4)
[2018-09-10 07:22] LABS: ALANINE AMINOTRANSFERASE 30 U/L (21-72); ALBUMIN 3.3 g/dL (3.5-5.0); ALKALINE PHOSPHATASE 94 U/L (38-126); ANION GAP 8 (5-19); ASPARTATE AMINO TRANSFERASE 260 U/L (17-59); BLOOD UREA NITROGEN 7 mg/dL (7-20); CALCIUM 8.3 mg/dL (8.4-10.2); CARBON DIOXIDE 29 mmol/L (22-30); CHLORIDE 101 mmol/L (98-107); GLUCOSE 95 mg/dL (75-110); PHOSPHORUS 3.1 mg/dL (2.5-4.5); POTASSIUM 3.3 mmol/L (3.6-5.0); SODIUM 137.7 mmol/L (137-145); TOTAL PROTEIN 7.7 g/dL (6.3-8.2)
[2018-09-10 09:30] LABS: MEAN CORPUSCULAR HGB CONC 34.1 g/dL (32.0-36.0)
[2018-09-10] MEDS ORDERED: HALOPERIDOL LACTATE INJ 5 MG/1 ML VIAL IV PRN (09:34)
[2018-09-10] MEDS: PANTOPRAZOLE SODIUM 40 MG VIAL IV SCH ×2 (09:47→22:23)
[2018-09-10] MEDS: SPIRONOLACTONE 25 MG TABLET PO SCH (09:48)
[2018-09-10] MEDS: FUROSEMIDE 40 MG TABLET PO SCH (09:48)
[2018-09-10] MEDS: OXYCODONE HCL IR 5 MG TABLET PO PRN ×2 (10:35→18:53)
[2018-09-10] MEDS ORDERED: OXYCODONE HCL IR 5 MG TABLET ONE (10:38)
[2018-09-10 11:34] LABS: HEMATOCRIT 30.9 % (37.9-51.0); HEMOGLOBIN 10.5 g/dL (13.5-17.0); MEAN CORPUSCULAR HEMOGLOBIN 33.5 pg (27.0-33.4); MEAN CORPUSCULAR VOLUME 98 fl (80-97); RED BLOOD COUNT 3.14 10^6/uL (4.35-5.55); WHITE BLOOD COUNT 4.7 10^3/uL (4.0-10.5)
[2018-09-10 11:35] LABS: RED CELL DISTRIBUTION WIDTH 15.1 % (11.5-14.0)
[2018-09-10 11:36] LABS: PLATELET COUNT 55 10^3/uL (150-450)
[2018-09-10] MEDS ORDERED: NORMAL SALINE 1000 ML 500 ML IV ONE (12:00)
[2018-09-10] MEDS ORDERED: LORAZEPAM INJ 2 MG/1 ML VIAL IV ONE (12:00)
[2018-09-10] MEDS ORDERED: DIAZEPAM 5 MG TABLET ONE (13:13)
[2018-09-10] MEDS ORDERED: DIAZEPAM 5 MG TABLET PO ONE (15:00)
--- NOTE | 2018-09-10 15:53 | PDOC PROGRESS REPORT ---
Subjective Progress Note for:: 09/10/18 Subjective:: The patient is a 32 year old male with a past medical history significant for alcoholic cirrhosis and alcohol dependence with continuous use who was admitted 09/09/2018 for delirium tremens with alcohol withdrawal seizure and alcoholic cirrhosis. Patient was seen on morning rounds with his present. He was found resting in bed comfortably on room air. He continues to be confused, impulsive, with delirium (frequently pulling at lines, sheets), stool and urinary incontinence, generalized malaise, diaphoresis, and tachycardia. He is tolerating a clear liquid diet with assistance. ROS is limited secondary to patient's mental status; but does state that he fe els fine and asks to go downstairs. No specific questions or concerns per at this time. Nursing reports difficulty managing withdrawal symptoms; required IV Ativan frequently overnight. Requesting medication for acute agitation if needed in addition to benzodiazepines. Reason For Visit: DELIRIUM TREMENS,ALCOHOLIC CIRRHOSIS, Physical Exam Vital Signs: Temp Pulse Resp BP Pulse Ox 97.7 F 103 H 20 118/75 96 09/10/18 15:38 09/10/18 15:38 09/10/18 15:38 09/10/18 15:38 09/10/18 15:38 Intake & Output 09/09/18 09/10/18 09/11/18 06:59 06:59 06:59 Intake Total 1659 595 Output Total 600 300 Balance 1059 295 Weight 99 kg General appearance: PRESENT: mild distress, well-developed, well-nourished Head exam: PRESENT: normocephalic, other - Left periorbital edema/ecchymosis Eye exam: PRESENT: conjunctiva pink, EOMI, PERRLA, scleral icterus Ear exam: PRESENT: normal external ear exam Mouth exam: PRESENT: moist, tongue midline Neck exam: ABSENT: carotid bruit, JVD, lymphadenopathy, thyromegaly Respiratory exam: PRESENT: clear to auscultation gi, symmetrical, unlabored. ABSENT: rales, rhonchi, wheezes Cardiovascular exam: PRESENT: RRR, +S1, +S2. ABSENT: diastolic murmur, rubs, systolic murmur Pulses: PRESENT: normal dorsalis pedis pul Vascular exam: PRESENT: normal capillary refill GI/Abdominal exam: PRESENT: normal bowel sounds, soft. ABSENT: distended, guarding, mass, organolmegaly, rebound, tenderness Rectal exam: PRESENT: deferred Extremities exam: PRESENT: full ROM. ABSENT: calf tenderness, clubbing, pedal edema Neurological exam: PRESENT: alert, awake, oriented to person, CN II-XII grossly intact, other - Impulsive, hallucinating, orientated to self and only. ABSENT: oriented to place, oriented to time, oriented to situation, motor sensory deficit Psychiatric exam: PRESENT: appropriate affect, normal mood. ABSENT: homicidal ideation, suicidal ideation Skin exam: PRESENT: dry, intact, warm, other - Large deep ecchymosis to bilateral upper extremities, left chest wall. Resolving ecchymosis to left lateral thigh, left flank.. ABSENT: cyanosis, rash Results Laboratory Results: 09/10/18 09:16 09/10/18 06:55 09/10/18 09/10/18 09/10/18 06:55 06:55 06:55 WBC Cancelled RBC Cancelled Hgb Cancelled Hct Cancelled MCV Cancelled MCH Cancelled MCHC Cancelled RDW Cancelled Plt Count Cancelled Sodium 137.7 Potassium 3.3 L Chloride 101 Carbon Dioxide 29 Anion Gap 8 BUN 7 Creatinine 0.64 Est GFR ( Amer) > 60 Est GFR (Non-Af Amer) > 60 Glucose 95 Calcium 8.3 L Phosphorus 3.1 Magnesium 1.8 Total Bilirubin 9.0 H AST 260 H ALT 30 Alkaline Phosphatase 94 Ammonia 17.2 Total Protein 7.7 Albumin 3.3 L 09/10/18 09:16 WBC 4.7 RBC 3.14 L Hgb 10.5 L Hct 30.9 L MCV 98 H MCH 33.5 H MCHC 34.1 RDW 15.1 H Plt Count 55 L Sodium Potassium Chloride Carbon Dioxide Anion Gap BUN Creatinine Est GFR ( Amer) Est GFR (Non-Af Amer) Glucose Calcium Phosphorus Magnesium Total Bilirubin AST ALT Alkaline Phosphatase Ammonia Total Protein Albumin Impressions: Head CT 09/09/18 06:25 IMPRESSION: No acute intracranial abnormality. TECHNICAL DOCUMENTATION: Quality ID # 436: Final reports with documentation of one or more dose reduction techniques (e.g., Automated exposure control, adjustment of the mA and/or kV according to patient size, use of iterative reconstruction technique) copyright 2011 [employer]- All Rights Reserved Assessment & Plan - Diagnosis (1) Alcohol withdrawal seizure Qualifiers: Complication of substance-induced condition: with delirium Qualified Code(s): F10.231 - Alcohol dependence with withdrawal delirium Is this a current diagnosis for this admission?: Yes Plan: Patient's reports that he drank two beers two days ago; otherwise last alcohol intake 09/05/18. She reports patient has had visual/auditory hallucinations, has been agitated, moving furniture, and falling at home. Questionable seizure activity prior to arrival and witnessed seizure in the ED on arrival. Serum EtOH <10. UDS negative. The patient is admitted to [facility] on continuous cardiac telemetry. He is provided maintenance IVF and will receive a banana bag nightly. Haldol 5 mg IV every 6 hours as needed for acute agitation concerning for unintentional injury to self or others. As he is now tolerating p.o.; will begin Valium 10 mg p.o. every 6 hours scheduled. Continue as needed IV Ativan 2mg every 2 hours for anxiety/agitation/withdrawal symptoms. 1:1 sitter for safety (patient is pulling at IV lines, telemetry, postictal disorientation/combativeness). Fall, seizure, aspiration precautions. Discussed with Mental Health; Dr. Lundberg agreeable to IVC as the patient recently left AMA from another facility. The patient's is agreeable and appreciative of plan to place under IVC status. Discharge planning is consulted. (2) Thrombocytopenia Is this a current diagnosis for this admission?: Yes Plan: Trending upward; PLT 40--> 55. Secondary to Alcoholic cirrhosis. Per patient's ; PLT were 26 at an outside facility less than 1 week ago. Patient left prior to receiving planned PLT transfusion. No active bleeding at present; will monitor closely and transfuse as necessary. Patient is Typed and Screened in anticipation of possible need. Fall, seizure, aspiration, and bleeding precautions. (3) Cirrhosis Qualifiers: Hepatic cirrhosis type: alcoholic cirrhosis Ascites presence: without ascites Qualified Code(s): K70.30 - Alcoholic cirrhosis of liver without ascites Is this a current diagnosis for this admission?: Yes Plan: MELD score 22; 19.6% 3-month mortality risk. Hepatitis panel is pending. Supportive measures: IVF while not tolerating p.o. Continue Lasix/spironolactone. Bleeding precautions; transfuse as necessary. Consider steroid therapy; although given the patient's age and stature, there is possibility of steroid abuse. Patient's denies knowledge of such use. Continue home dose lactulose; hyperammonemia has resolved. Palliative care consultation at 's request; understands limited availability of interventions considering patient's continued EtOH abuse. Mental Health evaluation for underlying mental health disorders contributing to EtOH abuse. Daily chemistry. (4) Alcohol dependence Qualifiers: Substance use status: in withdrawal Complication of substance-induced condition: with delirium Qualified Code(s): F10.231 - Alcohol dependence with withdrawal delirium Is this a current diagnosis for this admission?: Yes Plan: Plan as above. (5) Hyponatremia Is this a current diagnosis for this admission?: Yes Plan: Replete. Continue IVF. Daily chemistry. (6) Hypokalemia Is this a current diagnosis for this admission?: Yes Plan: Secondary to EtOH abuse. IV banana bag nightly. Daily chemistry. (7) Hypomagnesemia Is this a current diagnosis for this admission?: Yes Plan: Replete. Secondary to EtOH abuse. IV Magnesium 2 gm yesterday. Will monitor and continue to replace as necessary. - Time Time Spent with patient: 15-24 minutes Medications reviewed and adjusted accordingly: Yes Anticipated discharge: Home
[2018-09-10] MEDS: DIAZEPAM 5 MG TABLET PO SCH (18:55)
[2018-09-10] MEDS: LACTULOSE SYRUP 20 GM/30 ML UDCUP PO SCH ×2 (19:02→22:25)
[2018-09-10] MEDS: NORMAL SALINE 1000 ML 1,000 ML with POTASSIUM CHLORIDE 20 MEQ, MAGNESIUM SULFATE 8 MEQ,... IV SCH ×5 (19:02)
[2018-09-11] MEDS: DIAZEPAM 5 MG TABLET PO SCH ×5 (00:47→23:15)
[2018-09-11] MEDS: LORAZEPAM INJ 2 MG/1 ML VIAL IV PRN ×3 (01:54→14:45)
[2018-09-11] MEDS: NORMAL SALINE 1000 ML 1,000 ML IV PRN (04:25)
[2018-09-11 05:54] LABS: INTERNATIONAL RATION (INR) 2.01; PROTHROMBIN TIME 23.7 SEC (11.4-15.4)
[2018-09-11 05:57] LABS: HEMATOCRIT 28.6 % (37.9-51.0); MEAN CORPUSCULAR HEMOGLOBIN 34.8 pg (27.0-33.4); MEAN CORPUSCULAR HGB CONC 34.9 g/dL (32.0-36.0); MEAN CORPUSCULAR VOLUME 100 fl (80-97); RED BLOOD COUNT 2.87 10^6/uL (4.35-5.55); RED CELL DISTRIBUTION WIDTH 15.2 % (11.5-14.0); WHITE BLOOD COUNT 4.5 10^3/uL (4.0-10.5)
[2018-09-11 06:17] LABS: ALANINE AMINOTRANSFERASE 27 U/L (21-72); ALBUMIN 2.9 g/dL (3.5-5.0); ALKALINE PHOSPHATASE 84 U/L (38-126); ANION GAP 7 (5-19); ASPARTATE AMINO TRANSFERASE 212 U/L (17-59); BILIRUBIN,DIRECT 3.2 mg/dL (0.0-0.4); BLOOD UREA NITROGEN 6 mg/dL (7-20); CALCIUM 7.8 mg/dL (8.4-10.2); CARBON DIOXIDE 30 mmol/L (22-30); CHLORIDE 104 mmol/L (98-107); GLUCOSE 100 mg/dL (75-110); PHOSPHORUS 3.8 mg/dL (2.5-4.5); POTASSIUM 3.2 mmol/L (3.6-5.0); TOTAL PROTEIN 6.7 g/dL (6.3-8.2)
[2018-09-11 06:30] LABS: PLATELET COUNT 57 10^3/uL (150-450)
[2018-09-11 06:39] LABS: HEPATITIS A AB IGM Negative (Negative); HEPATITIS B CORE AB IGM Negative (Negative); HEPATITS B SURFACE ANTIGEN Negative (Negative)
[2018-09-11 07:11] LABS: HEPATITIS C VIRUS ANTIBODY >11.0 s/co ratio (0.0-0.9)
[2018-09-11] MEDS: FUROSEMIDE 40 MG TABLET PO SCH (09:20)
[2018-09-11] MEDS: SPIRONOLACTONE 25 MG TABLET PO SCH (09:20)
[2018-09-11] MEDS: PANTOPRAZOLE SODIUM 40 MG VIAL IV SCH ×2 (09:30→22:24)
[2018-09-11] MEDS: POTASSI CL 20 MEQ/50 ML RIDER 20 MEQ/50 ML RTUPB IV SCH ×2 (09:30→11:27)
[2018-09-11] MEDS: LACTULOSE SYRUP 20 GM/30 ML UDCUP PO SCH ×2 (09:30→22:23)
[2018-09-11] MEDS: MULTIVITAMINS W-IRON TABLET, CHEWABLE PO SCH (11:24)
--- NOTE | 2018-09-11 16:47 | PDOC PROGRESS REPORT ---
Subjective Progress Note for:: 09/11/18 Subjective:: The patient is a 32 year old male with a past medical history significant for alcoholic cirrhosis and alcohol dependence with continuous use who was admitted 09/09/2018 for delirium tremens with alcohol withdrawal seizure and alcoholic cirrhosis. Patient was seen on morning rounds with his present. He was found resting in bed comfortably on room air while eating his breakfast. He is awake and orientated to self, "hospital in [place]," the year 2018, and situation. He gives me permission to discuss his health conditions while his and close friend are present. Both he and his confirm that his parents can be updated; and no specific information is requested to be withheld, should they call or ask questions while visiting in person. 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 The patient was previously aware of his hepatitis C and was able to tell me that he has been told that he is not eligible for treatment until he has been sober for 6 months. He stated in his own words that he knew that continued drinking would lead to "my liver turning off"and acknowledged that this would be a fatal occurrence. We discussed that his current laboratory work suggested that he had a moderately high possibility of an occurrence within the next 3 months (patient's specifically asked about MELD score). The patient and were reassured, multiple times, that this was not a certain event, but rather that he was at high risk, especially if he continued to drink alcohol. I encouraged them to meet with Palliative Care services so that they would be aware of the services available when they would be desired in the future. I specifically advised against full hospice/comfort care (as I had with the patient's on the previous two days) at this time as the patient was expressing interest in obtaining sobriety and treatment for his Hep C. At present he denies headaches, dizziness, palpitations, chest pain, dyspnea, cough, abdominal pain, nausea, vomiting, diarrhea, or body aches. They had no other questions or concerns at this time. Nursing reported that the patient had a rather uneventful morning. However, this afternoon, he became acutely agitated, impulsive and confused; pt threw stool against the wall. Reason For Visit: DELIRIUM TREMENS,ALCOHOLIC CIRRHOSIS, Physical Exam Vital Signs: Temp Pulse Resp BP Pulse Ox 98.8 F 96 20 120/100 H 95 09/11/18 08:00 09/11/18 16:04 09/11/18 08:00 09/11/18 16:04 09/11/18 16:04 Intake & Output 09/10/18 09/11/18 09/12/18 06:59 06:59 06:59 Intake Total 1659 4064 1099 Output Total 600 2200 425 Balance 1059 1864 674 Weight 99 kg 95.6 kg General appearance: PRESENT: no acute distress, well-developed, well-nourished Head exam: PRESENT: normocephalic, other - Left periorbital ecchymosis Eye exam: PRESENT: conjunctiva pink, EOMI, periorbital swelling - Lt eye w/ ecchymosis, PERRLA, scleral icterus Ear exam: PRESENT: normal external ear exam Mouth exam: PRESENT: moist, tongue midline Neck exam: ABSENT: carotid bruit, JVD, lymphadenopathy, thyromegaly Respiratory exam: PRESENT: clear to auscultation gi, symmetrical, unlabored. ABSENT: rales, rhonchi, wheezes Cardiovascular exam: PRESENT: RRR, +S1, +S2. ABSENT: diastolic murmur, rubs, systolic murmur Pulses: PRESENT: normal dorsalis pedis pul Vascular exam: PRESENT: normal capillary refill GI/Abdominal exam: PRESENT: normal bowel sounds, soft. ABSENT: distended, gu arding, mass, organolmegaly, rebound, tenderness Rectal exam: PRESENT: deferred Extremities exam: PRESENT: full ROM. ABSENT: calf tenderness, clubbing, pedal edema Neurological exam: PRESENT: alert, awake, oriented to person, oriented to place - Hospital, oriented to time - 2018, oriented to situation, CN II-XII grossly in tact, other - Intermittently confused, impulsive, hallucinating. ABSENT: motor sensory deficit Psychiatric exam: PRESENT: appropriate affect, normal mood. ABSENT: homicidal ideation, suicidal ideation Skin exam: PRESENT: dry, intact, warm, other - Large deep ecchymosis to bilateral upper extremities, left chest wall. Resolving ecchymosis to left lateral thigh, left flank. ABSENT: cyanosis, rash Results Laboratory Results: 09/11/18 05:37 09/11/18 05:37 09/11/18 09/11/18 09/11/18 05:37 05:37 05:37 WBC 4.5 RBC 2.87 L Hgb 10.0 L Hct 28.6 L MCV 100 H MCH 34.8 H MCHC 34.9 RDW 15.2 H Plt Count 57 L Sodium 141.0 Potassium 3.2 L Chloride 104 Carbon Dioxide 30 Anion Gap 7 BUN 6 L Creatinine 0.65 Est GFR ( Amer) > 60 Est GFR (Non-Af Amer) > 60 Glucose 100 Calcium 7.8 L Phosphorus 3.8 Total Bilirubin 7.0 H AST 212 H ALT 27 Alkaline Phosphatase 84 Ammonia 32.3 Total Protein 6.7 Albumin 2.9 L Impressions: Head CT 09/09/18 06:25 IMPRESSION: No acute intracranial abnormality. TECHNICAL DOCUMENTATION: Quality ID # [id number]: Final reports with documentation of one or more dose reduction techniques (e.g., Automated exposure control, adjustment of the mA and/or kV according to patient size, use of iterative reconstruction technique) copyright 2010 [employer]- All Rights Reserved Assessment & Plan - Diagnosis (1) Alcohol withdrawal seizure Qualifiers: Complication of substance-induced condition: with delirium Qualified Code(s): F10.231 - Alcohol dependence with withdrawal delirium Is this a current diagnosis for this admission?: Yes Plan: Patient's reports that he drank two beers two days ago; otherwise last alcohol intake 09/05/18. She reports patient has had visual/auditory hallucinations, has been agitated, moving furniture, and falling at home. Questionable seizure activity prior to arrival and witnessed seizure in the ED on arrival. Serum EtOH <10. UDS negative. The patient is admitted to [facility] on continuous cardiac telemetry. He is provided banana bag nightly; will transition to p.o. multivitamin, thiamine, folic acid tomorrow if he continues to tolerate regular diet. Haldol 5 mg IV every 6 hours as needed for acute agitation concerning for unintentional injury to self or others. Continue Valium 10 mg p.o. every 6 hours scheduled. Continue as needed IV Ativan 2mg every 2 hours for anxiety/agitation/withdrawal symptoms. 1:1 sitter for safety (patient is pulling at IV lines, telemetry, postictal disorientation/combativeness). Fall, seizure, aspiration precautions. Discussed with Mental Health; Dr. Lundberg agreeable to IVC as the patient recently left AMA from another facility. The patient's is agreeable and appreciative of plan to place under IVC status. Discharge planning is consulted. (2) Thrombocytopenia Is this a current diagnosis for this admission?: Yes Plan: Trending upward; PLT 40--> 55--> 57. Secondary to Alcoholic cirrhosis. Per patient's ; PLT were 26 at an outside facility less than 1 week ago. Patient left prior to receiving planned PLT transfusion. No active bleeding at present; will monitor closely and transfuse as necessary. Patient is Typed and Screened in anticipation of possible need. Fall, seizure, aspiration, and bleeding precautions. (3) Cirrhosis Qualifiers: Hepatic cirrhosis type: alcoholic cirrhosis Ascites presence: without ascites Qualified Code(s): K70.30 - Alcoholic cirrhosis of liver without ascites Is this a current diagnosis for this admission?: Yes Plan: MELD score 22; 19.6% 3-month mortality risk. Hepatitis panel is positive for hepatitis C. Supportive measures: Continue Lasix/spironolactone. Bleeding precautions; transfuse as necessary. Consider steroid therapy; although given the patient's age and stature, there is possibility of steroid abuse (patient and deny) Continue home dose lactulose; hyperammonemia has resolved. Palliative care consultation at 's request; understands limited availability of interventions considering patient's continued EtOH abuse. Mental Health evaluation for underlying mental health disorders contributing to EtOH abuse. Daily chemistry. (4) Alcohol dependence Qualifiers: Substance use status: in withdrawal Complication of substance-induced condition: with delirium Qualified Code(s): F10.231 - Alcohol dependence with withdrawal delirium Is this a current diagnosis for this admission?: Yes Plan: Plan as above. (5) Hyponatremia Is this a current diagnosis for this admission?: Yes Plan: Replete. Daily chemistry. (6) Hypokalemia Is this a current diagnosis for this admission?: Yes Plan: Secondary to EtOH abuse. IV banana bag nightly. Daily chemistry. (7) Hypomagnesemia Is this a current diagnosis for this admission?: Yes Plan: Replete. Secondary to EtOH abuse. Will monitor and continue to replace as necessary. - Time Time Spent with patient: 35 or more minutes Medications reviewed and adjusted accordingly: Yes Anticipated discharge: Home
--- NOTE | 2018-09-11 17:32 | PSYCHOLOGICAL NOTE ---
Psych Note - Psych Note Date seen by psych provider: 09/10/18 Time seen by psych provider: 13:21 Psych Note: Reason for Consult: IVC DOROTHEA DOTY is a 32 year old male with a past medical history significant for alcoholic cirrhosis and alcohol dependence with continuous use who presents to the emergency department today via EMS for possible EtOH withdrawal seizure at home witnessed by his . Check in conducted with patient Patient was sleeping and attending nurse requested for the patient not to be awoken as the patient has had a very difficult day with confusion and agitation. Patient will be re-evaluated at a later time. Alcohol use disorder; severe Impression/plan: patient is recommended to continue IVC. At this time the patient is reported be [facility] staff to still have difficulties with confusion and agitation. Patient will be re-evaluated. Dr. Lundberg was consulted on the care and management of this patient; attending physician is in agreement with recommendations and disposition.
--- NOTE | 2018-09-11 17:47 | PSYCHOLOGICAL NOTE ---
Psych Note - Psych Note Date seen by psych provider: 09/11/18 Time seen by psych provider: 14:50 Psych Note: Reason for Consult: IVC DOROTHEA DOTY is a 32 year old male with a past medical history significant for alcoholic cirrhosis and alcohol dependence with continuous use who presents to the emergency department today via EMS for possible EtOH withdrawal seizure at home witnessed by his . Check in conducted with patient Patient reports he drove to [facility] because his stomach. He states he is an alcoholic and "used to drink daily;" however, now he is gone down to "only 1 or 2 a night." He disclosed he was sober for about one year and relapsed about 9 m onths ago. He reports he was able to obtain sobriety after going to rehab. When asked he he used any other substances, he denies and reports that anything else would "scare him." He reports he only drinks alcohol and smokes "real cigarettes" and denies vapping. 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 Patient is observed with a black eye and yellow tinted skin. Alcohol use disorder; severe Impression/plan: patient is recommended to continue IVC. While patient is orientated he still presents at times confused and makes odd comments. Patient was noted to have an incident of incontinence today which resulted in him rubbing feces all over his body and head. Patient will be re-evaluated. Dr. Lundberg was consulted on the care and management of this patient; attending physician is in agreement with recommendations and disposition.
[2018-09-11] MEDS: NORMAL SALINE 1000 ML 1,000 ML with POTASSIUM CHLORIDE 20 MEQ, MAGNESIUM SULFATE 8 MEQ,... IV SCH ×5 (18:26)
[2018-09-11] MEDS: OXYCODONE HCL IR 5 MG TABLET PO PRN (20:33)
[2018-09-12] MEDS: DIAZEPAM 5 MG TABLET PO SCH ×4 (05:16→23:44)
[2018-09-12 06:15] LABS: INTERNATIONAL RATION (INR) 2.05; PROTHROMBIN TIME 24.1 SEC (11.4-15.4)
[2018-09-12 06:18] LABS: ALANINE AMINOTRANSFERASE 29 U/L (21-72); ALBUMIN 2.7 g/dL (3.5-5.0); ALKALINE PHOSPHATASE 109 U/L (38-126); ANION GAP 7 (5-19); ASPARTATE AMINO TRANSFERASE 212 U/L (17-59); BILIRUBIN,DIRECT 2.9 mg/dL (0.0-0.4); BILIRUBIN,TOTAL 6.1 mg/dL (0.2-1.3); BLOOD UREA NITROGEN 5 mg/dL (7-20); CALCIUM 8.1 mg/dL (8.4-10.2); CARBON DIOXIDE 27 mmol/L (22-30); CHLORIDE 106 mmol/L (98-107); GLUCOSE 91 mg/dL (75-110); PHOSPHORUS 4.7 mg/dL (2.5-4.5); POTASSIUM 3.6 mmol/L (3.6-5.0); SODIUM 139.9 mmol/L (137-145); TOTAL PROTEIN 6.4 g/dL (6.3-8.2)
[2018-09-12 06:39] LABS: HEMATOCRIT 28.2 % (37.9-51.0); HEMOGLOBIN 9.6 g/dL (13.5-17.0); WHITE BLOOD COUNT 4.9 10^3/uL (4.0-10.5)
[2018-09-12 06:40] LABS: MEAN CORPUSCULAR HEMOGLOBIN 34.4 pg (27.0-33.4); MEAN CORPUSCULAR VOLUME 101 fl (80-97); RED CELL DISTRIBUTION WIDTH 15.4 % (11.5-14.0)
[2018-09-12 06:41] LABS: PLATELET COUNT 61 10^3/uL (150-450)
[2018-09-12] MEDS: OXYCODONE HCL IR 5 MG TABLET PO PRN (08:17)
[2018-09-12] MEDS: SPIRONOLACTONE 25 MG TABLET PO SCH (09:24)
[2018-09-12] MEDS: MULTIVITAMINS W-IRON TABLET, CHEWABLE PO SCH (09:24)
[2018-09-12] MEDS: FUROSEMIDE 40 MG TABLET PO SCH (09:24)
[2018-09-12] MEDS: LACTULOSE SYRUP 20 GM/30 ML UDCUP PO SCH ×2 (09:25→21:32)
[2018-09-12] MEDS: PANTOPRAZOLE SODIUM 40 MG VIAL IV SCH (09:26)
[2018-09-12] MEDS ORDERED: PROMETHAZINE HCL INJ 25 MG/1 ML VIAL IV PRN (10:00)
--- NOTE | 2018-09-12 14:36 | PDOC PROGRESS REPORT ---
Subjective Progress Note for:: 09/12/18 Subjective:: The patient is a 32 year old male with a past medical history significant for alcoholic cirrhosis and alcohol dependence with continuous use who was admitted 09/09/2018 for delirium tremens with alcohol withdrawal seizure and alcoholic cirrhosis. Patient was seen on morning rounds with his present. He was found resting in bed comfortably on room air while eating his breakfast. He is awake and orientated to self, "hospital in [place]," the year 2018, and situation. He was seen again today while his father was present. The patient asked me to update his father on all information. We reviewed the importance of alcohol cessation; reviewed that continued alcohol intake was detrimental to his liver and prohibiting him from receiving necessary treatment for hepatitis C and potentially additional interventions for his liver failure in the future. We discussed that overall, his labs and condition are stable at this time, however he remains at an increased risk of fulminant liver failure. All of their questions were addressed. Patient reports that he is feeling well today and denies headaches, dizziness, palpitations, chest pain, dyspnea, cough, abdominal pain, nausea, vomiting, diarrhea, or body aches. No concerns per nursing. Reason For Visit: DELIRIUM TREMENS,ALCOHOLIC CIRRHOSIS, Physical Exam Vital Signs: Temp Pulse Resp BP Pulse Ox 98.6 F 8 L 18 136/78 H 96 09/12/18 10:49 09/12/18 14:00 09/12/18 11:08 09/12/18 10:49 09/12/18 11:08 Intake & Output 09/11/18 09/12/18 09/13/18 06:59 06:59 06:59 Intake Total 4064 2558 Output Total 2200 725 Balance 1864 1833 Weight 95.6 kg 99.5 kg General appearance: PRESENT: no acute distress, cooperative, well-developed, well-nourished Head exam: PRESENT: normocephalic, other - Left periorbital ecchymosis Eye exam: PRESENT: conjunctiva pink, EOMI, PERRLA, scleral icterus Ear exam: PRESENT: normal external ear exam Mouth exam: PRESENT: moist, tongue midline Neck exam: ABSENT: carotid bruit, JVD, lymphadenopathy, thyromegaly Respiratory exam: PRESENT: clear to auscultation gi, symmetrical, unlabored. ABSENT: rales, rhonchi, wheezes Cardiovascular exam: PRESENT: RRR, +S1, +S2. ABSENT: diastolic murmur, rubs, systolic murmur Pulses: PRESENT: normal dorsalis pedis pul Vascular exam: PRESENT: normal capillary refill GI/Abdominal exam: PRESENT: ascites, normal bowel sounds, soft. ABSENT: distended, guarding, mass, organolmegaly, rebound, tenderness Rectal exam: PRESENT: deferred Extremities exam: PRESENT: full ROM. ABSENT: calf tenderness, clubbing, pedal edema Neurological exam: PRESENT: alert, awake, oriented to person, oriented to place, oriented to time, oriented to situation, CN II-XII grossly intact, other - Intermittently confused, impulsive. ABSENT: motor sensory deficit Psychiatric exam: PRESENT: appropriate affect, normal mood. ABSENT: homicidal ideation, suicidal ideation Skin exam: PRESENT: dry, intact, jaundice, warm, other - Large deep ecchymosis to bilateral upper extremities (increased), left chest wall. Resolving ecchym osis to left lateral thigh, left flank. ABSENT: cyanosis, rash Results Laboratory Results: 09/12/18 05:55 09/12/18 05:55 09/12/18 09/12/18 09/12/18 05:55 05:55 05:55 WBC 4.9 RBC 2.80 L Hgb 9.6 L Hct 28.2 L MCV 101 H MCH 34.4 H MCHC 34.0 RDW 15.4 H Plt Count 61 L Sodium 139.9 Potassium 3.6 Chloride 106 Carbon Dioxide 27 Anion Gap 7 BUN 5 L Creatinine 0.63 Est GFR ( Amer) > 60 Est GFR (Non-Af Amer) > 60 Glucose 91 Calcium 8.1 L Phosphorus 4.7 H Magnesium 1.7 Total Bilirubin 6.1 H AST 212 H ALT 29 Alkaline Phosphatase 109 Ammonia 27.3 Total Protein 6.4 Albumin 2.7 L Impressions: Head CT 09/09/18 06:25 IMPRESSION: No acute intracranial abnormality. TECHNICAL DOCUMENTATION: Quality ID # 436: Final reports with documentation of one or more dose reduction techniques (e.g., Automated exposure control, adjustment of the mA and/or kV according to patient size, use of iterative reconstruction technique) copyright 2011 [employer]- All Rights Reserved Assessment & Plan - Diagnosis (1) Alcohol withdrawal seizure Qualifiers: Complication of substance-induced condition: with delirium Qualified Code(s): F10.231 - Alcohol dependence with withdrawal delirium Is this a current diagnosis for this admission?: Yes Plan: No further seizure activity. Witnessed seizure in the ED on arrival. Serum EtOH <10. UDS negative. The patient is admitted to [facility] on continuous cardiac telemetry. He is provided p.o. MVI w/ iron, thiamin, and folic acid. Haldol 5 mg IV every 6 hours as needed for acute agitation concerning for unintentional injury to self or others. Will begin weaning scheduled valium today; Valium 5 mg p.o. every 6 hours scheduled. Continue as needed IV Ativan 2mg every 2 hours for anxiety/agitation/withdrawal symptoms. 1:1 sitter for safety (patient is pulling at IV lines, telemetry, postictal disorientation/combativeness). Fall, seizure, aspiration precautions. Discussed with Mental Health; Dr. Lundberg agreeable to IVC as the patient r ecently left AMA from another facility. Discharge planning is consulted. (2) Thrombocytopenia Is this a current diagnosis for this admission?: Yes Plan: Trending upward; PLT 40--> 55--> 57--> 61. Secondary to Alcoholic cirrhosis. Per patient's ; PLT were 26 at an outside facility less than 1 week ago. Patient left prior to receiving planned PLT transfusion. Will monitor closely and transfuse as necessary. Patient is Typed and Screened in anticipation of possible need. Fall, seizure, aspiration, and bleeding precautions. (3) Cirrhosis Qualifiers: Hepatic cirrhosis type: alcoholic cirrhosis Ascites presence: without ascites Qualified Code(s): K70.30 - Alcoholic cirrhosis of liver without ascites Is this a current diagnosis for this admission?: Yes Plan: MELD score 22; 19.6% 3-month mortality risk. Hepatitis panel is positive for hepatitis C. Supportive measures: Continue Lasix/spironolactone. Bleeding precautions; transfuse as necessary. Consider steroid therapy; although given the patient's age and stature, there is possibility of steroid abuse (patient and deny) Continue home dose lactulose; hyperammonemia has resolved. Palliative care consultation at 's request; understands limited availability of interventions considering patient's continued EtOH abuse. Mental Health evaluation for underlying mental health disorders contributing to EtOH abuse. Daily chemistry. (4) Alcohol dependence Qualifiers: Substance use status: in withdrawal Complication of substance-induced condition: with delirium Qualified Code(s): F10.231 - Alcohol dependence with withdrawal delirium Is this a current diagnosis for this admission?: Yes Plan: Plan as above. (5) Hyponatremia Is this a current diagnosis for this admission?: Yes Plan: Replete. Daily chemistry. (6) Hypokalemia Is this a current diagnosis for this admission?: Yes Plan: Secondary to EtOH abuse. IV banana bag nightly. Daily chemistry. (7) Hypomagnesemia Is this a current diagnosis for this admission?: Yes Plan: Replete. Secondary to EtOH abuse. Will monitor and continue to replace as necessary. (8) Anemia Qualifiers: Anemia type: unspecified type Qualified Code(s): D64.9 - Anemia, unspecified Is this a current diagnosis for this admission?: Yes Plan: Multifactorial; likely secondary to anemia of chronic disease (liver cirrhosis) and poor nutrition in patient with alcoholism. Hemoglobin gradually trending down; 11.0--> 10.5--> 10.0--> 9.6 Occult stool pending. IV protonix 40 mg daily. IV fluids are discontinued today which will help clarify possible hemodilution. No outward evidence of bleeding, however, the patient's ecchymosis appears to continue to be enlarging. The patient is also developed subtle abdominal distention (will similar to ascites); will monitor closely and consider abdominal imaging if hemoglobin continues to trend downward. He has been typed and screened; will transfuse as necessary. - Time Time Spent with patient: 35 or more minutes Medications reviewed and adjusted accordingly: Yes Anticipated discharge: Home
[2018-09-12] MEDS: LORAZEPAM INJ 2 MG/1 ML VIAL IV PRN (20:01)
[2018-09-13] MEDS: DIAZEPAM 5 MG TABLET PO SCH ×3 (05:21→18:44)
[2018-09-13 06:39] LABS: ANION GAP 10 (5-19); BLOOD UREA NITROGEN 7 mg/dL (7-20); CALCIUM 8.7 mg/dL (8.4-10.2); CARBON DIOXIDE 28 mmol/L (22-30); CHLORIDE 102 mmol/L (98-107); GLUCOSE 112 mg/dL (75-110); POTASSIUM 3.7 mmol/L (3.6-5.0); SODIUM 139.9 mmol/L (137-145)
[2018-09-13 07:13] LABS: HEMATOCRIT 31.4 % (37.9-51.0); HEMOGLOBIN 10.7 g/dL (13.5-17.0); MEAN CORPUSCULAR HEMOGLOBIN 34.1 pg (27.0-33.4); MEAN CORPUSCULAR HGB CONC 34.2 g/dL (32.0-36.0); MEAN CORPUSCULAR VOLUME 100 fl (80-97); PLATELET COUNT 45 10^3/uL (150-450); RED BLOOD COUNT 3.15 10^6/uL (4.35-5.55); RED CELL DISTRIBUTION WIDTH 16.2 % (11.5-14.0); WHITE BLOOD COUNT 5.9 10^3/uL (4.0-10.5)
[2018-09-13] MEDS: LACTULOSE SYRUP 20 GM/30 ML UDCUP PO SCH ×2 (09:44→21:56)
[2018-09-13] MEDS: MULTIVITAMINS W-IRON TABLET, CHEWABLE PO SCH (09:45)
[2018-09-13] MEDS: THIAMINE HCL 100 MG TABLET PO SCH (09:46)
[2018-09-13] MEDS: PANTOPRAZOLE SODIUM 40 MG VIAL IV SCH (09:46)
[2018-09-13] MEDS: FUROSEMIDE 40 MG TABLET PO SCH (09:46)
[2018-09-13] MEDS: SPIRONOLACTONE 25 MG TABLET PO SCH (09:46)
[2018-09-13] MEDS: FOLIC ACID 1 MG TABLET PO SCH (09:46)
[2018-09-13] MEDS ORDERED: TUBERCULIN,PURIF.PROT.DERIV. 5 TU/0.1 ML TEST 1 ML VIAL ID ONE (13:16)
--- NOTE | 2018-09-13 13:18 | PDOC PROGRESS REPORT ---
Subjective Progress Note for:: 09/13/18 Subjective:: The patient is a 32 year old male with a past medical history significant for alcoholic cirrhosis and alcohol dependence with continuous use who was admitted 09/09/2018 for delirium tremens with alcohol withdrawal seizure and alcoholic cirrhosis. Patient was seen on morning rounds with his present. He was found resting in bed comfortably on room air. The patient tells me that he is feeling well today. He advises that he intends to find an inpatient alcohol rehabilitation program after discharge. He denies headaches, dizziness, palpitations, chest pain, dyspnea, cough, abdominal pain, nausea, vomiting, diarrhea, or body aches. Patient have no questions or concerns at this time. No concerns per nursing. Reason For Visit: DELIRIUM TREMENS,ALCOHOLIC CIRRHOSIS, Physical Exam Vital Signs: Temp Pulse Resp BP Pulse Ox 99.5 F 107 H 18 130/81 H 96 09/13/18 11:51 09/13/18 11:51 09/13/18 11:51 09/13/18 11:51 09/13/18 11:51 Intake & Output 09/12/18 09/13/18 09/14/18 06:59 06:59 06:59 Intake Total 2558 825 236 Output Total 725 500 Balance 1833 325 236 Weight 99.5 kg 97.8 kg General appearance: PRESENT: no acute distress, cooperative, well-developed, well-nourished Head exam: PRESENT: normocephalic, other - Left eye periorbital edema and ecchymosis Eye exam: PRESENT: conjunctiva pink, EOMI, PERRLA, scleral icterus Ear exam: PRESENT: normal external ear exam Mouth exam: PRESENT: moist, tongue midline Neck exam: ABSENT: carotid bruit, JVD, lymphadenopathy, thyromegaly Respiratory exam: PRESENT: clear to auscultation gi, symmetrical, unlabored. ABSENT: rales, rhonchi, wheezes Cardiovascular exam: PRESENT: RRR, +S1, +S2. ABSENT: diastolic murmur, rubs, systolic murmur Pulses: PRESENT: normal dorsalis pedis pul Vascular exam: PRESENT: normal capillary refill GI/Abdominal exam: PRESENT: ascites, normal bowel sounds, soft. ABSENT: distended, guarding, mass, organolmegaly, rebound, tenderness Rectal exam: PRESENT: deferred Extremities exam: PRESENT: full ROM. ABSENT: calf tenderness, clubbing, pedal edema Neurological exam: PRESENT: alert, awake, oriented to person, oriented to place, oriented to time, oriented to situation, CN II-XII grossly intact, other - Slight hand tremor. ABSENT: motor sensory deficit Psychiatric exam: PRESENT: appropriate affect, normal mood. ABSENT: homicidal ideation, suicidal ideation Skin exam: PRESENT: dry, intact, jaundice, warm, other - Large ecchymosis to bilateral upper extremities, left chest wall, left hip, left flank. ABSENT: cyanosis, rash Results Laboratory Results: 09/13/18 06:07 09/13/18 06:07 09/12/18 09/13/18 09/13/18 15:47 06:07 06:07 WBC 5.9 RBC 3.15 L Hgb 10.7 L Hct 31.4 L MCV 100 H MCH 34.1 H MCHC 34.2 RDW 16.2 H Plt Count 45 L Sodium 139.9 Potassium 3.7 Chloride 102 Carbon Dioxide 28 Anion Gap 10 BUN 7 Creatinine 0.57 Est GFR ( Amer) > 60 Est GFR (Non-Af Amer) > 60 Glucose 112 H Calcium 8.7 Stool Occult Blood POSITIVE Impressions: Head CT 09/09/18 06:25 IMPRESSION: No acute intracranial abnormality. TECHNICAL DOCUMENTATION: Quality ID # 436: Final reports with documentation of one or more dose reduction techniques (e.g., Automated exposure control, adjustment of the mA and/or kV according to patient size, use of iterative reconstruction technique) copyright 2011 [employer]- All Rights Reserved Assessment & Plan - Diagnosis (1) Alcohol withdrawal seizure Qualifiers: Complication of substance-induced condition: with delirium Qualified Code(s): F10.231 - Alcohol dependence with withdrawal delirium Is this a current diagnosis for this admission?: Yes Plan: No further seizure activity. Witnessed seizure in the ED on arrival. Serum EtOH <10. UDS negative. The patient is admitted to [facility] on continuous cardiac telemetry. He is provided p.o. MVI w/ iron, thiamin, and folic acid. Haldol 5 mg IV every 6 hours as needed for acute agitation concerning for unintentional injury to self or others. Continue weaning scheduled valium today; Valium 2.5 mg p.o. every 6 hours scheduled. Continue as needed IV Ativan 2mg every 2 hours for anxiety/agitation/withdrawal symptoms. 1:1 sitter for safety (patient is pulling at IV lines, telemetry, postictal disorientation/combativeness). Fall, seizure, aspiration precautions. Discussed with Mental Health; remains under IVC status. Discharge planning is consulted. (2) Thrombocytopenia Is this a current diagnosis for this admission?: Yes Plan: Down today; PLT 40--> 55--> 57--> 61--> 45. Secondary to Alcoholic cirrhosis. Per patient's ; PLT were 26 at an outside facility less than 1 week ago. Patient left prior to receiving planned PLT transfusion. Will monitor closely and transfuse as necessary. Patient is Typed and Screened in anticipation of possible need. Fall, seizure, aspiration, and bleeding precautions. (3) Cirrhosis Qualifiers: Hepatic cirrhosis type: alcoholic cirrhosis Ascites presence: without ascites Qualified Code(s): K70.30 - Alcoholic cirrhosis of liver without ascites Is this a current diagnosis for this admission?: Yes Plan: MELD score 22; 19.6% 3-month mortality risk. Hepatitis panel is positive for hepatitis C. Supportive measures: Continue Lasix/spironolactone. Bleeding precautions; transfuse as necessary. Continue home dose lactulose; hyperammonemia has resolved. Palliative care consultation at 's request; understands limited availability of interventions considering patient's continued EtOH abuse. Mental Health evaluation for underlying mental health disorders contributing to EtOH abuse. Daily chemistry. (4) Alcohol dependence Qualifiers: Substance use status: in withdrawal Complication of substance-induced condition: with delirium Qualified Code(s): F10.231 - Alcohol dependence with withdrawal delirium Is this a current diagnosis for this admission?: Yes Plan: Patient has expressed interest in an inpatient rehabilitation facility. With that in mind, will obtain TB skin testing and HIV screening. Plan as above. (5) Hyponatremia Is this a current diagnosis for this admission?: Yes Plan: Replete. Daily chemistry. (6) Hypokalemia Is this a current diagnosis for this admission?: Yes Plan: Secondary to EtOH abuse. IV banana bag nightly. Daily chemistry. (7) Hypomagnesemia Is this a current diagnosis for this admission?: Yes Plan: Replete. Secondary to EtOH abuse. Will monitor and continue to replace as necessary. (8) Anemia Qualifiers: Anemia type: unspecified type Qualified Code(s): D64.9 - Anemia, unspecified Is this a current diagnosis for this admission?: Yes Plan: Multifactorial; likely secondary to anemia of chronic disease (liver cirrhosis) and poor nutrition in patient with alcoholism. Hemoglobin improved today; 11.0--> 10.5--> 10.0--> 9.6--> 10.7 Occult stool positive (possibly related to ingestion from epistaxis the day previously). IV protonix 40 mg daily. MVI with iron. No outward evidence of bleeding, however, the patient's ecchymosis is significant. The patient has also developed subtle abdominal distention (likely ascites); will monitor closely and consider abdominal imaging if hemoglobin continues to trend downward. He has been typed and screened; will transfuse as necessary. - Time Time Spent with patient: 15-24 minutes Medications reviewed and adjusted accordingly: Yes Anticipated discharge: Home Within: within 48 hours
[2018-09-13] MEDS: LORAZEPAM INJ 2 MG/1 ML VIAL IV PRN (21:56)
[2018-09-14] MEDS: DIAZEPAM 5 MG TABLET PO SCH ×2 (00:56→05:16)
[2018-09-14 05:45] LABS: HEMATOCRIT 32.3 % (37.9-51.0); MEAN CORPUSCULAR HEMOGLOBIN 34.3 pg (27.0-33.4); MEAN CORPUSCULAR HGB CONC 34.1 g/dL (32.0-36.0); MEAN CORPUSCULAR VOLUME 101 fl (80-97); RED BLOOD COUNT 3.21 10^6/uL (4.35-5.55); RED CELL DISTRIBUTION WIDTH 16.4 % (11.5-14.0); WHITE BLOOD COUNT 5.7 10^3/uL (4.0-10.5)
[2018-09-14 06:05] LABS: ALANINE AMINOTRANSFERASE 23 U/L (21-72); ALKALINE PHOSPHATASE 118 U/L (38-126); ANION GAP 8 (5-19); ASPARTATE AMINO TRANSFERASE 191 U/L (17-59); BILIRUBIN,TOTAL 6.5 mg/dL (0.2-1.3); BLOOD UREA NITROGEN 9 mg/dL (7-20); CALCIUM 8.8 mg/dL (8.4-10.2); CARBON DIOXIDE 30 mmol/L (22-30); CHLORIDE 102 mmol/L (98-107); GLUCOSE 99 mg/dL (75-110); POTASSIUM 3.9 mmol/L (3.6-5.0); SODIUM 139.5 mmol/L (137-145); TOTAL PROTEIN 7.1 g/dL (6.3-8.2)
[2018-09-14 06:20] LABS: PLATELET COUNT 85 10^3/uL (150-450)
[2018-09-14] MEDS ORDERED: DIAZEPAM 5 MG TABLET PO PRN (07:38)
[2018-09-14] MEDS: PANTOPRAZOLE SODIUM 40 MG VIAL IV SCH (10:32)
[2018-09-14] MEDS: SPIRONOLACTONE 25 MG TABLET PO SCH (10:32)
[2018-09-14] MEDS: LACTULOSE SYRUP 20 GM/30 ML UDCUP PO SCH (10:32)
[2018-09-14] MEDS: FOLIC ACID 1 MG TABLET PO SCH (10:32)
[2018-09-14] MEDS: THIAMINE HCL 100 MG TABLET PO SCH (10:32)
[2018-09-14] MEDS: FUROSEMIDE 40 MG TABLET PO SCH (10:32)
[2018-09-14] MEDS: MULTIVITAMINS W-IRON TABLET, CHEWABLE PO SCH (10:32)
[2018-09-14 11:56] VITALS: BP 132/98
--- NOTE | 2018-09-14 16:05 | PDOC DISCHARGE SUMMARY ---
<SANTANA SINGH - Last Filed: 09/14/18 15:53> General - Admit/Disc Date/PCP Admission Date/Primary Care Provider: 09/09/18 09:04 PRISCILLA BAUTISTA MD Discharge Date: 09/14/18 - Discharge Diagnosis (1) Alcohol withdrawal seizure Is this a current diagnosis for this admission?: Yes Summary: Witnessed seizure while in the emergency department. He has had no further seizure activity since his time of his admission. Serum EtOH < 10 on arrival. UDS was negative. Patient was admitted to [facility] on continuous cardiac telemetry with seizure, fall, aspiration precautions in place. He was provided scheduled Valium and as needed Ativan for anxiety/agitation/wi thdrawal symptoms/seizure-like activity. His benzodiazepines were slowly decreased over the course of his admission. (2) Thrombocytopenia Is this a current diagnosis for this admission?: Yes Summary: Overall improved; Secondary to Alcoholic cirrhosis. PLT 40--> 55--> 57--> 61--> 45--> 85. (3) Cirrhosis Is this a current diagnosis for this admission?: Yes Summary: Secondary to chronic hepatitis C and alcohol abuse. MELD score 22; 19.6% 3-month mortality risk. Continue home dose lactulose, Lasix, spironolactone. Plan of care consultation was requested; left information packets and reviewed most form with patient and family members. Recommend follow-up with primary care provider within 1 week, gastroenterology within 4-6 weeks if remains sober. Educated on the importance of alcohol cessation so that he may qualify for treatment. (4) Alcohol dependence Is this a current diagnosis for this admission?: Yes Summary: Multivitamin with iron, folic acid, thiamine supplementation. Met with discharge planning to discuss area of social resources. HIV screening negative, TB skin testing placed (will need to have his PPD read within 24-48 hours) for inpatient rehabilitation eligibility. (5) Hyponatremia Is this a current diagnosis for this admission?: Yes Summary: Replete. (6) Hypokalemia Is this a current diagnosis for this admission?: Yes Summary: Replete. (7) Hypomagnesemia Is this a current diagnosis for this admission?: Yes Summary: Replete. (8) Anemia Is this a current diagnosis for this admission?: Yes Summary: Multifactorial; likely secondary to anemia of chronic disease (liver cirrhosis) and poor nutrition in patient with alcoholism. Hemoglobin improved today; 11.0--> 10.5--> 10.0--> 9.6--> 10.7--> 11.7 Occult stool positive (possibly related to ingestion from epistaxis the day previously). (9) Hyperammonemia Is this a current diagnosis for this admission?: Yes Summary: Resolved. Continue home dose lactulose. - Additional Information Resuscitation Status: Full Code Discharge Diet: As Tolerated, Cardiac Discharge Activity: Activity As Tolerated, Balance Activity w/Rest, Slowly Increase Activity Prescriptions: RX: Folic Acid [Folvite 1 mg Tablet] 1 mg PO DAILY #30 tablet RX: Lactulose [Constulose 10 gm/15 mL Oral Solution] 10 gm PO BID #450 ml RX: Multivitamins W-Iron [Flintstones Chewable Multivit W/Fe Tab] 2 tab PO DAILY #60 tab.chew RX: Nicotine [Nicoderm 21 mg/24 Hr Transderm Patch] 1 each TD DAILYP PRN #30 patch.td24 PRN Reason: RX: Thiamine HCl [Thiamine 100 mg Tablet] 100 mg PO DAILY #30 tablet Home Medications: RX: Furosemide [Lasix 40 mg Tablet] 40 mg PO QAM 09/10/18 RX: Spironolactone [Aldactone 100 mg Tablet] 1 tab PO DAILY 09/10/18 RX: Thiamine Mononitrate [Vitamin B-1] 100 mg PO DAILY 09/10/18 RX: Acetaminophen [Tylenol 325 mg Tablet] 650 mg PO Q4HP PRN tablet 09/14/18 RX: Folic Acid [Folvite 1 mg Tablet] 1 mg PO DAILY #30 tablet 09/14/18 RX: Furosemide [Lasix 40 mg Tablet] 40 mg PO DAILY tablet 09/14/18 RX: Lactulose [Cephulac Syrup 20 gm/30 ml Udcup] 10 gm PO Q12 udc 09/14/18 RX: Lactulose [Constulose 10 gm/15 mL Oral Solution] 10 gm PO BID #450 ml 09/14/18 RX: Multivitamins W-Iron [Flintstones Chewable Multivit W/Fe Tab] 2 tab PO DAILY #60 tab.chew 09/14/18 RX: Nicotine [Nicoderm 21 mg/24 Hr Transderm Patch] 1 each TD DAILYP PRN #30 patch.td24 09/14/18 RX: Spironolactone [Aldactone 25 mg Tablet] 25 mg PO DAILY tablet 09/14/18 RX: Thiamine HCl [Thiamine 100 mg Tablet] 100 mg PO DAILY #30 tablet 09/14/18 History of Present Illness History of Present Illness: DOROTHEA DOTY is a 32 year old male with a past medical history significant for alcoholic cirrhosis and alcohol dependence with continuous use who presents to the emergency department today via EMS for possible EtOH withdrawal seizure at home witnessed by his . Upon arrival to the emergency department he did have a witnessed seizure by the emergency department provider. Patient's reports that he was recently admitted at [facility] for alcohol withdrawal and cirrhosis; was discharged the following day. He was readmitted 3 days later but then left AMA when informed that he required plate let transfusions. She states that at that time his platelets were 26 (improved to 40 today) with a serum alcohol level greater than 400. She states that since returning to home, the patient has abstained from alcohol until yesterday when he drank two beers to moderate withdrawal symptoms. Patient's reports that he has been hallucinating at home, moving furniture, and falling frequently. She is aware of his liver cirrhosis diagnosis, however, I am not certain that she understands the gravity of his situation. She does recognize that he will not be a candidate for any treatments while he is continuing to drink alcohol. Evaluation in the emergency department revealed normal vital signs, anemia (hemoglobin 11.0), INR 1.82, mild hyponatremia, hypokalemia, hypo-magnesium, elevated total bili 7.3, AST 278, and ammonia of 39.3. Head CT was negative. He is referred to the hospitalist services for admission and management of alcohol withdrawal with delirium/seizures and alcoholic cirrhosis. Physical Exam Vital Signs: Temp Pulse Resp BP Pulse Ox 99.6 F 90 20 132/98 H 93 09/14/18 11:55 09/14/18 11:55 09/14/18 11:55 09/14/18 11:55 09/14/18 11:55 Intake & Output 09/13/18 09/14/18 09/15/18 06:59 06:59 06:59 Intake Total 825 473 Output Total 500 Balance 325 473 Weight 97.8 kg 95.8 kg General appearance: PRESENT: no acute distress, well-developed, well-nourished Head exam: PRESENT: normocephalic, other - Left periorbital edema and ecchymosis Eye exam: PRESENT: conjunctiva pink, EOMI, PERRLA. ABSENT: scleral icterus Ear exam: PRESENT: normal external ear exam Mouth exam: PRESENT: moist, tongue midline Neck exam: ABSENT: carotid bruit, JVD, lymphadenopathy, thyromegaly Respiratory exam: PRESENT: clear to auscultation gi, symmetrical, unlabored. ABSENT: rales, rhonchi, wheezes Cardiovascular exam: PRESENT: RRR, +S1, +S2. ABSENT: diastolic murmur, rubs, systolic murmur Pulses: PRESENT: normal dorsalis pedis pul Vascular exam: PRESENT: normal capillary refill GI/Abdominal exam: PRESENT: normal bowel sounds, soft. ABSENT: distended, guarding, mass, organolmegaly, rebound, tenderness Rectal exam: PRESENT: deferred Extremities exam: PRESENT: full ROM. ABSENT: calf tenderness, clubbing, pedal edema Neurological exam: PRESENT: alert, awake, oriented to person, oriented to place, oriented to time, oriented to situation, CN II-XII grossly intact. ABSENT: motor sensory deficit Psychiatric exam: PRESENT: appropriate affect, normal mood, other - Somewhat impulsive.. ABSENT: homicidal ideation, suicidal ideation Skin exam: PRESENT: dry, intact, warm, other - Large resolving ecchymosis to bilateral upper extremities, left chest wall, left flank, left hip. ABSENT: cyanosis, rash Results Laboratory Results: 09/14/18 05:00 09/14/18 05:00 09/14/18 09/14/18 05:00 05:00 WBC 5.7 RBC 3.21 L Hgb 11.0 L Hct 32.3 L MCV 101 H MCH 34.3 H MCHC 34.1 RDW 16.4 H Plt Count 85 L Sodium 139.5 Potassium 3.9 Chloride 102 Carbon Dioxide 30 Anion Gap 8 BUN 9 Creatinine 0.60 Est GFR ( Amer) > 60 Est GFR (Non-Af Amer) > 60 Glucose 99 Calcium 8.8 Total Bilirubin 6.5 H AST 191 H ALT 23 Alkaline Phosphatase 118 Total Protein 7.1 Albumin 3.0 L Impressions: Head CT 09/09/18 06:25 IMPRESSION: No acute intracranial abnormality. TECHNICAL DOCUMENTATION: Quality ID # [id number]: Final reports with documentation of one or more dose reduction techniques (e.g., Automated exposure control, adjustment of the mA and/or kV according to patient size, use of iterative reconstruction technique) copyright 2010 [employer]- All Rights Reserved Qualifiers - * PATIENT BEING DISCHARGED WITH ANY OF THE FOLLOWING DIAGNOSIS: No Plan Discharge Plan: Discharged home in the care of family members. Recommend follow-up appointment with primary care provider within 1 week. Recommend establishing with a mental health/substance abuse counselor as soon as possible. Recommend follow-up with gastroenterology, Dr. Back, within 4-6 weeks. Strongly advised against any alcohol intake. Return to emergency department as needed. Time Spent: Less than 30 Minutes <MARTHA MENDOZA - Last Filed: 09/15/18 13:27> General - Admit/Disc Date/PCP Admission Date/Primary Care Provider: 09/09/18 09:04 PRISCILLA BAUTISTA MD History of Present Illness History of Present Illness: DOROTHEA DOTY is a 32 year old male Physical Exam Vital Signs: Temp Pulse Resp BP Pulse Ox 99.6 F 90 20 132/98 H 93 09/14/18 11:55 09/14/18 11:55 09/14/18 11:55 09/14/18 11:55 09/14/18 11:55 Intake & Output 09/14/18 09/15/18 09/16/18 06:59 06:59 06:59 Intake Total 473 Balance 473 Weight 211 lb 3.245 oz Results Laboratory Results: 09/14/18 05:00 09/14/18 05:00 Impressions: Head CT 09/09/18 06:25 IMPRESSION: No acute intracranial abnormality. TECHNICAL DOCUMENTATION: Quality ID # [id number]: Final reports with documentation of one or more dose reduction techniques (e.g., Automated exposure control, adjustment of the mA and/or kV according to patient size, use of iterative reconstruction technique) copyright 2010 [employer]- All Rights Reserved Plan Discharge Plan: discussed with mid-level - i did not see patient myself
== END 2018-09-14 12:18 | disposition home or self-care (01) | DRG 897 ==
LOC: ER 06:08 → EH 09:04 → 3W 11:30
PROVIDERS: ADMIT Hospitalist; ATTEND Hospitalist
DX: F10.231 Alcohol dependence with withdrawal delirium (principal); G40.89 Other seizures; E87.1 Hypo-osmolality and hyponatremia; E87.6 Hypokalemia; E83.42 Hypomagnesemia; E72.20 Disorder of urea cycle metabolism, unspecified; D69.6 Thrombocytopenia, unspecified; K70.30 Alcoholic cirrhosis of liver without ascites; B18.2 Chronic viral hepatitis C; D63.8 Anemia in other chronic diseases classified elsewhere; Z79.899 Other long term (current) drug therapy; F17.210 Nicotine dependence, cigarettes, uncomplicated; Z88.8 Allergy status to other drugs, medicaments and biological substances
CPT/HCPCS: 36415; 70450; 80048; 80053; 80074; 80307; 82140; 82272; 83735; 84100; 85025; 85027; 85610; 86701; 86850; 86900; 86901; 90686; 96374; 99291; J1630; J2060; J3411; J3475; J3480; J3490; J7030; S0164

== ENCOUNTER 2020-09-11 18:48 | Emergency (ER) | payer OTHER, MEDICAID | END 2020-09-11 22:12 | disposition left against medical advice (07) | LOC: ER 18:48 | DX: Z53.21 Procedure and treatment not carried out due to patient leaving prior to being seen by health care provider (principal) ==